=== PATIENT | male | born 1950 | race Two or more races ===

== ENCOUNTER 2020-07-22 12:41 | Emergency (ER) | payer MEDICARE, SELFPAY ==
--- NOTE | ~2020-07-22 | XR_ITS ---
EXAMINATION: XR TIBIA AND FIBULA, LEFT CLINICAL INFORMATION: Nonhealing wound. Status post trauma. COMPARISON: None TECHNIQUE: AP and lateral views of the left tibia and fibula were obtained. FINDINGS: The bones and soft tissues are normal. No fracture. No osseous lesions. XR/XR tibia fibula LT 2V IMPRESSION: Unremarkable left tibia and fibula exam.
--- NOTE | ~2020-07-22 | US_ITS ---
EXAMINATION: US VENOUS ULTRASOUND WITH DOPPLER LOWER EXTREMITY, LEFT CLINICAL INFORMATION: Left lower extremity pain, swelling, wound. Assess for occult DVT. COMPARISON: None TECHNIQUE: Ultrasound of the deep veins is performed from the hip to the calf with compression sonography and color and pulse Doppler assessment. Spectral analysis with color-flow imaging is performed. FINDINGS: There is normal venous compression and respiratory variation and augmented flow. The visualized common femoral vein, superficial femoral vein, profunda femoral vein, popliteal vein, and the trifurcation region shows no evidence of deep venous thrombosis. There is no popliteal fossa cyst. There are several nodes left inguinal region with normal central node fatty hilus. Largest node 0.8 cm short axis. No hyperemia on color Doppler. US/US venous duplex LE LT IMPRESSION: No DVT demonstrated in the left lower extremity.
[2020-07-22 13:08] VITALS: BP 151/73; PULSE 59; RESP 16; TEMP 36.9; O2SAT 100; BMI 25.5
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
--- NOTE | 2020-07-22 15:02 | PC.NURSE ---
CALL PLACED TO KATEY ANDINO LOADER ENGINEER TO REQUEST RESULTS, SHE WILL CONTACT RADIOLOGIST
== END 2020-07-22 15:29 | disposition home or self-care (01) ==
PROVIDERS: Emergency Provider Emergency Medicine; PCP Nurse Practitioner Family
DX: M79.662 Pain in left lower leg (principal); S81.802A Unspecified open wound, left lower leg, initial encounter; W22.03XA Walked into furniture, initial encounter; Y93.89 Activity, other specified; Y92.032 Bedroom in apartment as the place of occurrence of the external cause; Y99.9 Unspecified external cause status
CPT/HCPCS: 73590; 93971; 99283; 99284

== ENCOUNTER 2020-07-29 08:51 | Outpatient (RCR) | payer MEDICARE, SELFPAY | END 2020-09-24 11:38 | disposition home or self-care (01) | LOC: HO.WCC 08:51 | PROVIDERS: Visit Provider Physician Assistant | DX: I87.312 Chronic venous hypertension (idiopathic) with ulcer of left lower extremity (principal); L97.222 Non-pressure chronic ulcer of left calf with fat layer exposed | CPT/HCPCS: 11042 ==

== ENCOUNTER 2021-04-01 14:28 | Emergency (ER) | payer MEDICARE, SELFPAY ==
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
[2021-04-01 14:43] VITALS: BP 118/82; PULSE 65; O2SAT 99
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
[2021-04-01 14:54] VITALS: BP 131/69; PULSE 62; RESP 18; TEMP 36.9; O2SAT 98; BMI 25.1
[2021-04-01] MEDS: Acetaminophen 325 MG TABLET 650 MG PO (17:27)
[2021-04-01 17:30] VITALS: BP 148/78; PULSE 56; RESP 16
== END 2021-04-01 17:34 | disposition home or self-care (01) ==
PROVIDERS: Emergency Provider Emergency Medicine
DX: S13.4XXA Sprain of ligaments of cervical spine, initial encounter (principal); S20.212A Contusion of left front wall of thorax, initial encounter; V43.52XA Car driver injured in collision with other type car in traffic accident, initial encounter; Y93.89 Activity, other specified; Y92.414 Local residential or business street as the place of occurrence of the external cause; Y99.9 Unspecified external cause status
CPT/HCPCS: 71046; 72125; 99284

== ENCOUNTER 2022-05-28 11:10 | Emergency (ER) | payer OTHER, SELFPAY ==
--- NOTE | 2022-05-28 11:19 | ED.NAVMDI ---
HPI - Nausea/Vomiting/Diarrhea General Chief complaint: Nausea/Vomiting/Diarrhea <AURELIO Ellis - Last Filed: 05/28/22 11:24> Stated complaint: diarrhea <AURELIO Ellis - Last Filed: 05/28/22 11:24> Time Seen by Provider: 05/28/22 11:24 <AURELIO Ellis - Last Filed: 05/28/22 11:24> Source: patient and hourly sign language interpreter <AURELIO Mendoza - Last Filed: 05/28/22 13:27> Mode of arrival: ambulatory <AURELIO Mendoza Last Filed: 05/28/22 13:27> Limitations: language barrier <AURELIO Mendoza Last Filed: 05/28/22 13:27> History of Present Illness HPI Narrative: Patient is a 71 year old assigned male at with no reported medical history presenting to the emergency department today with diarrhea. Patient states that he has had diarrhea for 2 weeks and when it first started, he had abdominal pain. Patient states that he was seen in the [facility] ER where they told him he had diverticulitis but didn't start him on any medications or give him any information for follow up. Patient denies any dizziness, lightheadedness, abdominal pain, nausea, vomiting, fever, chills, blurry vision, double vision, loss of vision, chest pain, difficulty breathing, shortness of breath, back pain, night sweats, pain with urination, increased urinary frequency, increased urinary urgency, blood in his urine or stool, syncope or a near syncopal episode, recent trauma or falls, bowel incontinence, bladder incontinence, bowel retention, bladder retention, or any other complaints at this time. <AURELIO Mendoza - Last Filed: 05/28/22 13:27> MD elicited complaint: diarrhea <AURELIO Mendoza - Last Filed: 05/28/22 13:27> Onset (ago): week(s) (2) <AURELIO Mendoza - Last Filed: 05/28/22 13:27> Associated nausea: No <AURELIO Mendoza Last Filed: 05/28/22 13:27> Associated abdominal pain: No <AURELIO Mendoza - Last Filed: 03/10/23 13:27> Location of pain: none <AURELIO Mendoza Last Filed: 05/28/22 13:27> Exacerbating factors: none <AURELIO Mendoza Last Filed: 05/28/22 13:27> Relieving factors: none <AURELIO Mendoza Last Filed: 05/28/22 13:27> Associated symptoms: denies other symptoms <AURELIO Mendoza Last Filed: 05/28/22 13:27> Related Data Home medications: Previous Rx's Medication Instructions Recorded cephalexin 500 mg capsule 500 mg PO Q8H 7 days #21 caps 07/22/20 doxycycline monohydrate 100 mg 100 mg PO BID #14 caps 07/22/20 capsule tramadol 50 mg tablet 50 mg PO TID PRN pain #6 tabs 07/22/20 cyclobenzaprine 10 mg tablet 10 mg PO TID PRN muscle spasm #20 04/01/21 tabs amoxicillin 875 mg-potassium 1 tab PO BID 7 days #14 tabs 05/28/22 clavulanate 125 mg tablet loperamide 2 mg tablet (Imodium 2 mg PO QID PRN loose stool #7 tabs 05/28/22 A-D) <AURELIO Ellis - Last Filed: 05/28/22 11:24> Allergies/Adverse reactions: Allergies Allergy/AdvReac Type Severity Reaction Status Date / Time naproxen [From Anaprox] Allergy Rash Verified 07/22/20 13:08 <AURELIO Ellis Last Filed: 05/28/22 11:24> Review of Systems Constitutional: Constitutional: Reports no additional constitutional complaints, Denies chills, Denies fever(s) and Denies night sweats <AURELIO Mendoza Last Filed: 05/28/22 13:27> Eyes: Eyes: Reports no additional eye complaints, Denies blurry vision, Denies change in vision, Denies diplopia, Denies eye discharge, Denies loss of vision and Denies eye pain <AURELIO Mendoza Last Filed: 05/28/22 13:27> ENT: Denies dizziness <AURELIO Mendoza Last Filed: 05/28/22 13:27> Cardiovascular: Cardiovascular: Reports no additional cardiovascular complaints, Denies chest pain, Denies lightheadedness, Denies Loss of Consciousness and Denies dyspnea <AURELIO Mendoza - Last Filed: 05/28/22 13:27> Respiratory: Respiratory: Reports no additional respiratory complaints and Denies dyspnea <AURELIO Mendoza - Last Filed: 05/28/22 13:27> Gastrointestinal: Gastrointestinal: Reports diarrhea and Denies nausea <AURELIO Mendoza - Last Filed: 05/28/22 13:27> Genitourinary: Genitourinary: Reports no additional male genitourinary complaints, Denies hematuria, Denies oliguria, Denies difficulty urinating, Denies dysuria, Denies urinary frequency, Denies urinary hesitancy, Denies urinary incontinence and Denies urinary urgency <AURELIO Mendoza - Last Filed: 05/28/22 13:27> Musculoskeletal: Musculoskeletal: Reports no additional musculoskeletal complaints, Denies numbness and Denies tingling <AURELIO Mendoza - Last Filed: 05/28/22 13:27> Neurologic: Denies dizziness, Denies loss of vision, Denies numbness and Denies tingling <AURELIO Mendoza - Last Filed: 05/28/22 13:27> Psychiatric: Psychiatric: Reports no additional psychiatric complaints <AURELIO Mendoza - Last Filed: 05/28/22 13:27> Endocrine: Endocrine: Reports no additional endocrine complaints <AURELIO Mendoza - Last Filed: 05/28/22 13:27> Hematologic/Lymphatic: Hematologic/Lymphatic: Reports no additional hematologic/lymphatic complaints <AURELIO Mendoza - Last Filed: 05/28/22 13:27> Allergic/Immunologic: Allergic/Immunologic: Reports no additional allergic/immunologic complaints <AURELIO Mendoza - Last Filed: 05/28/22 13:27> PMFSH Past Medical History Attestation statement: The following information was validated with the patient. <AURELIO Mendoza - Last Filed: 05/28/22 13:27> Source: old records reviewed and nursing notes reviewed <AURELIO Mendoza - Last Filed: 05/28/22 13:27> Medical History: Medical History No known health problems <Luz Renschler, PA - Last Filed: 05/28/22 11:24> Social History Social History: Social History Advance Directives: Yes Advance Directives Information Provided: No Advance Directives on File: No <AURELIO Ellis - Last Filed: 05/28/22 11:24> Physical Exam Vital Signs: Vital Signs: Last Vital Signs Temp 97.9 F 05/28/22 11:20 Pulse 60 05/28/22 11:20 Resp 18 05/28/22 11:20 BP 132/87 05/28/22 11:20 Pulse Ox 98 05/28/22 11:20 O2 Del Method 05/28/22 11:20 BMI result Body Mass Index 25.1 <AURELIO Ellis - Last Filed: 05/28/22 11:24> Vital Signs: Last Vital Signs Temp 97.9 F 05/28/22 11:20 Pulse 60 05/28/22 11:20 Resp 18 05/28/22 11:20 BP 132/87 05/28/22 11:20 Pulse Ox 98 05/28/22 11:20 O2 Del Method 05/28/22 11:20 BMI result Body Mass Index 25.1 <AURELIO Mendoza - Last Filed: 05/28/22 13:27> Const: General: cooperative, no acute distress, alert and awake <AURELIO Mendoza - Last Filed: 05/28/22 13:27> Nutritional Appearance: well nourished <AURELIO Mendoza - Last Filed: 05/28/22 13:27> Orientation/consciousness: patient oriented x3 <AURELIO Mendoza - Last Filed: 05/28/22 13:27> Limitations: no limitations <AURELIO Mendoza - Last Filed: 05/28/22 13:27> HEENT: Head: Yes normal to inspection and Yes atraumatic <AURELIO Mendoza - Last Filed: 05/28/22 13:27> Ears: hearing grossly normal bilaterally and external ears normal <AURELIO Mendoza - Last Filed: 05/28/22 13:27> General nose exam: Normal external nose present, no nasal discharge noted and no epistaxis <Blanka AntonioAURELIO - Last Filed: 05/28/22 13:27> Face and sinus: Yes normal facial exam, No abrasion and No laceration <Blanka Antonio MT - Last Filed: 05/28/22 13:27> Mouth: Normal oral and palatal mucosa present, no drooling and no muffled voice <Blanka Antonio MT - Last Filed: 05/28/22 13:27> Eyes: General: appearance normal, both eyes and all related structures <Blanka Antonio MT - Last Filed: 05/28/22 13:27> Periorbital: periorbital findings normal <Blanka Antonio MT - Last Filed: 05/28/22 13:27> Eyelids: Yes eyelids normal <Blanka Antonio MT - Last Filed: 05/28/22 13:27> Conjunctivae: conjunctivae normal <Blanka Antonio MT - Last Filed: 05/28/22 13:27> Pupils: Equal, round and reactive pupils present <Blanka Antonio MT - Last Filed: 05/28/22 13:27> EOM: EOMs intact bilaterally <Blanka Antonio MT - Last Filed: 05/28/22 13:27> Neck: Neck: Yes normal visual inspection, Yes full ROM and Yes no lymphadenopathy <Blanka Antonio MT - Last Filed: 05/28/22 13:27> Chest: Chest palpation & inspection: normal inspection of the chest <Blanka Antonio MT - Last Filed: 05/28/22 13:27> Resp: Effort & Inspection: normal respiratory effort and able to speak in complete sentences <Blanka Antonio MT - Last Filed: 05/28/22 13:27> Auscultation: clear to auscultation bilaterally <Blanka ChampionAURELIO lima - Last Filed: 05/28/22 13:27> Cardio: Rate: regular rate <Blanka AntonioAURELIO - Last Filed: 05/28/22 13:27> Rhythm: regular rhythm <Blanka AntonioAURELIO - Last Filed: 05/28/22 13:27> GI: Inspection: Yes normal to inspection <Blanka Championclarence MT - Last Filed: 05/28/22 13:27> Palpation (GI): Soft to palpation, not firm, nontender, no guarding and not rigid <Blanka ChampionAURELIO lima - Last Filed: 05/28/22 13:27> Neuro: General: patient oriented x3 and moves all extremities <Blanka AntonioAURELIO - Last Filed: 05/28/22 13:27> Cranial nerves: Yes Equal, round and reactive pupils present <Blakna ChampionAURELIO lima - Last Filed: 05/28/22 13:27> Cognition (Neuro): normal cognition <Blanka AntonioAURELIO - Last Filed: 05/28/22 13:27> Motor exam (neuro): 5/5 motor strength present throughout <Blanka ChampionAURELIO lima - Last Filed: 05/28/22 13:27> Sensory Exam: Normal double simultaneous stimulation for sensation <Blanka AntonioAURELIO - Last Filed: 05/28/22 13:27> Coordination: exizob-cv-uwcp test normal <Blankaarley ChampionAURELIO lima - Last Filed: 05/28/22 13:27> Extrem: General: Yes normal to inspection, Yes full ROM and Yes capillary refill normal <Blanka ChampionAURELIO lima - Last Filed: 05/28/22 13:27> Psych: Appearance: grossly normal <Blankaarley ChampionAURELIO lima - Last Filed: 05/28/22 13:27> Mental Status: mental status grossly normal <Blanka ChampionAURELIO lima - Last Filed: 05/28/22 13:27> Affect: normal affect <Blankaarley ChampionAURELIO lima - Last Filed: 05/28/22 13:27> Attitude: cooperative <Blanka AntonioAURELIO lima - Last Filed: 05/28/22 13:27> Thought process: Normal thought process present <Blankaarley ChampionAURELIO lima - Last Filed: 05/28/22 13:27> Thought content: Normal thought content present <AURELIO Mendoza - Last Filed: 05/28/22 13:27> Insight: Good insight present (Psych) <Blankaarley ChampionAURELIO lima - Last Filed: 05/28/22 13:27> Course Course Course Narrative: RME - 71 yo hungarian-speaking male presenting to the ER with complaints of diarrhea x 2 weeks. Denies any nausea, vomiting or abdominal pain. States he is having 4 episodes of diarrhea a day. Denies any bloody stool. Was seen at [facility] ER last week, had blood work and a CT scan, however patient is a poor historian and is unable to report what he was diagnosed with or any findings. VSS in triage Plan - Labs ordered. Will get records from [facility]. <AURELIO Ellis - Last Filed: 05/28/22 11:24> Medical Decision Making Medical Decision Making MDM Narrative: Patient is a 71 year old assigned male at with no reported medical history presenting to the emergency department today with ongoing diarrhea. Patient's physical exam was unremarkable. Patient's blood work was unremarkable. Patient's urine showed no acute process. Patient's clinical presentation is consistent with gastroenteritis. Given the length of the patient's symptoms and possibility of diverticulitis diagnosis from [facility] ER, will treat with antibiotics and antidiarrheals. I explained my physical exam findings as well as all test results to the patient. I answered all questions asked by the patient. I stressed the importance of the patient taking his medication as prescribed. I stressed the importance of the patient following up with his primary care provider and a GI specialist. I stressed the importance of the patient returning to the emergency department immediately if his symptoms were to worsen or if he were to develop any dizziness, shortness of breath, difficulty breathing, chest pain, blurry vision, loss of vision, nausea, vomiting, abdominal pain, fever, chills, back pain, or any other complaints. Patient verbalized agreement and understanding with this treatment plan and discharge. <AURELIO Mendoza - Last Filed: 05/28/22 13:27> Differential Diagnosis Differential Diagnoses: The differential diagnosis associated with the presentation includes <AURELIO Mendoza - Last Filed: 05/28/22 13:27> gastroenteritis, diverticulitis <AURELIO Mendoza - Last Filed: 05/28/22 13:27> Lab Data MDM Lab Attestation statement: I reviewed the patient's lab results. <AURELIO Mendoza - Last Filed: 05/28/22 13:27> Result Diagrams: 05/28/22 11:33 05/28/22 11:33 <AURELIO Ellis - Last Filed: 05/28/22 11:24> Labs: Lab Results 05/28/22 05/28/22 05/28/22 Range/Units 11:33 11:33 11:38 WBC 5.9 (4.8-10.8) X10*3/uL RBC 4.23 L (4.60-5.80) X10*6/uL Hgb 13.0 L (14.0-18.0) g/dl Hct 39.3 L (42.0-52.0) % MCV 92.9 (80.0-98.0) fL MCH 30.7 (27.0-33.0) pg MCHC 33.1 (31.0-36.0) g/dl RDW 14.7 (11.0-16.0) % Plt Count 121 L (160-400) X10*3/uL MPV 12.2 (9.4-12.4) fL Immature Gran % (Auto) 0.2 (0.0-0.4) % Neut % (Auto) 62.6 (45-73) % Lymph % (Auto) 28.0 (20-40) % [place] % (Auto) 7.5 (2-11) % Eos % (Auto) 1.2 (0-4) % Baso % (Auto) 0.5 (0-2) % Lymph # (Auto) 1.6 (1.2-4.9) X10*3/uL [place] # (Auto) 0.4 (0.1-1.2) X10*3/uL Eos # (Auto) 0.1 (0.0-0.4) X10*3/uL Baso # (Auto) 0.0 (0.0-0.2) X10*3/uL Abs Immat Gran (auto) 0.01 (0.00-0.03) X10*3/uL Absolute Neuts (auto) 3.7 (2.0-8.3) x10*3/uL Absolute Nucleated RBC 0.000 (0.0-0.012) X10*3/uL Nucleated RBC % (auto) 0.0 (0.0-0.2) /100WBC Sodium 142 (135-145) mmol/L Potassium 4.2 (3.3-5.1) mmol/L Chloride 107 (96-108) mmol/L Carbon Dioxide 30 H (22-29) mmol/L Anion Gap 9 L (12-20) BUN 15 (9-16) mg/dL Creatinine 0.81 (0.5-1.4) mg/dL Estim Creat Clear Calc 86.0 Estimated GFR > 60 Random Glucose 110 (60-115) mg/dL Calcium 9.0 (8.4-10.2) mg/dL Magnesium 1.9 (1.6-2.6) mg/dL Total Bilirubin 0.9 (0.0-1.0) mg/dL Direct Bilirubin 0.2 (0.0-0.5) mg/dL AST 20 (5-37) U/L ALT 13 (0-40) U/L Alkaline Phosphatase 68 (39-117) U/L Total Protein 6.9 (6.5-8.0) g/dL Albumin 3.8 (3.5-5.0) g/dL Urine Color Dark Yellow Urine Appearance Cloudy Urine pH 5.5 (5.0-9.0) Ur Specific [place] >= 1.030 H (1.005-1.025) Urine Protein 30 (1+) H (Neg-Trace) mg/dL Urine Glucose (UA) Negative (Negative) mg/dL Urine Ketones Trace (Negative) mg/dL Urine Blood Negative (Negative) Urine Nitrite Negative (Negative) Ur Leukocyte Esterase Moderate (2+) H (Negative) Urine RBC 0-2 (0-2) /HPF Urine WBC >50 H (0-5) /HPF Ur Squamous Epith Cells 3-5 (0-2) /HPF Urine Bacteria None Seen (None Seen) Hyaline Casts 3-5 (0-2) /LPF <AURELIO Ellis - Last Filed: 05/28/22 11:24> Lab Results 05/28/22 05/28/22 05/28/22 Range/Units 11:33 11:33 11:38 WBC 5.9 (4.8-10.8) X10*3/uL RBC 4.23 L (4.60-5.80) X10*6/uL Hgb 13.0 L (14.0-18.0) g/dl Hct 39.3 L (42.0-52.0) % MCV 92.9 (80.0-98.0) fL MCH 30.7 (27.0-33.0) pg MCHC 33.1 (31.0-36.0) g/dl RDW 14.7 (11.0-16.0) % Plt Count 121 L (160-400) X10*3/uL MPV 12.2 (9.4-12.4) fL Immature Gran % (Auto) 0.2 (0.0-0.4) % Neut % (Auto) 62.6 (45-73) % Lymph % (Auto) 28.0 (20-40) % [place] % (Auto) 7.5 (2-11) % Eos % (Auto) 1.2 (0-4) % Baso % (Auto) 0.5 (0-2) % Lymph # (Auto) 1.6 (1.2-4.9) X10*3/uL [place] # (Auto) 0.4 (0.1-1.2) X10*3/uL Eos # (Auto) 0.1 (0.0-0.4) X10*3/uL Baso # (Auto) 0.0 (0.0-0.2) X10*3/uL Abs Immat Gran (auto) 0.01 (0.00-0.03) X10*3/uL Absolute Neuts (auto) 3.7 (2.0-8.3) x10*3/uL Absolute Nucleated RBC 0.000 (0.0-0.012) X10*3/uL Nucleated RBC % (auto) 0.0 (0.0-0.2) /100WBC Sodium 142 (135-145) mmol/L Potassium 4.2 (3.3-5.1) mmol/L Chloride 107 (96-108) mmol/L Carbon Dioxide 30 H (22-29) mmol/L Anion Gap 9 L (12-20) BUN 15 (9-16) mg/dL Creatinine 0.81 (0.5-1.4) mg/dL Estim Creat Clear Calc 86.0 Estimated GFR > 60 Random Glucose 110 (60-115) mg/dL Calcium 9.0 (8.4-10.2) mg/dL Magnesium 1.9 (1.6-2.6) mg/dL Total Bilirubin 0.9 (0.0-1.0) mg/dL Direct Bilirubin 0.2 (0.0-0.5) mg/dL AST 20 (5-37) U/L ALT 13 (0-40) U/L Alkaline Phosphatase 68 (39-117) U/L Total Protein 6.9 (6.5-8.0) g/dL Albumin 3.8 (3.5-5.0) g/dL Urine Color Dark Yellow Urine Appearance Cloudy Urine pH 5.5 (5.0-9.0) Ur Specific [place] >= 1.030 H (1.005-1.025) Urine Protein 30 (1+) H (Neg-Trace) mg/dL Urine Glucose (UA) Negative (Negative) mg/dL Urine Ketones Trace (Negative) mg/dL Urine Blood Negative (Negative) Urine Nitrite Negative (Negative) Ur Leukocyte Esterase Moderate (2+) H (Negative) Urine RBC 0-2 (0-2) /HPF Urine WBC >50 H (0-5) /HPF Ur Squamous Epith Cells 3-5 (0-2) /HPF Urine Bacteria None Seen (None Seen) Hyaline Casts 3-5 (0-2) /LPF <AURELIO Mendoza - Last Filed: 05/28/22 13:27> Discharge Plan Discharge Clinical Impression: Gastroenteritis <AURELIO Ellis - Last Filed: 05/28/22 11:24> Patient Disposition: Home, Self-Care <AURELIO Ellis - Last Filed: 05/28/22 11:24> Instructions: Gastroenteritis (ED) <AURELIO Ellis - Last Filed: 05/28/22 11:24> Additional Instructions: Follow up with your primary care provider and a GI specialist. Return to the emergency department immediately if your symptoms worsen or if you develop any dizziness, shortness of breath, difficulty breathing, chest pain, blurry vision, loss of vision, nausea, vomiting, abdominal pain, fever, chills, back pain, or any other complaints. Lele un seguimiento con napoles proveedor de atenci?n primaria y un especialista en gastroenterolog?a. Regrese a la bridget de emergencias de inmediato si danielle s?ntomas empeoran o si presenta mareos, dificultad para respirar, dolor de pecho, visi?n borroskate p?rdida de la visi?n, n?useas, v?mitos, dolor abdominal, fiebre, escalofr?os, dolor de espalda o cualquier otras quejas. <AURELIO Ellis - Last Filed: 05/28/22 11:24> Prescriptions: New amoxicillin-pot clavulanate 875-125 mg tablet 1 tab PO BID 7 Days Qty: 14 0RF loperamide [Imodium A-D] 2 mg tablet 2 mg PO QID PRN (Reason: loose stool) Qty: 7 0RF No Action cephalexin 500 mg capsule 500 mg PO Q8H 7 Days Qty: 21 0RF doxycycline monohydrate 100 mg capsule 100 mg PO BID Qty: 14 0RF tramadol 50 mg tablet 50 mg PO TID PRN (Reason: pain) Qty: 6 0RF cyclobenzaprine 10 mg tablet 10 mg PO TID PRN (Reason: muscle spasm) Qty: 20 0RF <AURELIO Ellis - Last Filed: 05/28/22 11:24> Referrals: [facility] [place] Gastroenterology Services [Provider Group] (Call to establish and follow up with a GI specialist. Llame para establecer y hacer un seguimiento con un especialista en gastroenterolog?a.) [facility] [place] [facility] [place]] (Call to establish and follow up with a primary care provider. If you already have a primary care provider, please follow up with them. Llame para establecer y hacer un seguimiento con un proveedor de atenci?n primaria. Si ya tiene un proveedor de atenci?n primaria, lele un seguimiento con ?l.) [facility]Provider Group] (Call to establish and follow up with a primary care provider. If you already have a primary care provider, please follow up with them. Llame para establecer y hacer un seguimiento con un proveedor de atenci?n primaria. Si ya tiene un proveedor de atenci?n primaria, lele un seguimiento con ?l. ) [facility] [place]Provider Group] (Call to establish and follow up with a primary care provider. If you already have a primary care provider, please follow up with them. Llame para establecer y hacer un seguimiento con un proveedor de atenci?n primaria. Si ya tiene un proveedor de atenci?n primaria, lele un seguimiento con ?l. ) <AURELIO Ellis - Last Filed: 05/28/22 11:24> Interventions: ED Discharge Assessment Last Done: 05/28/22 12:41 <AURELIO Ellis - Last Filed: 05/28/22 11:24> Discharge Date/Time: 05/28/22 12:42 <AURELIO Ellis - Last Filed: 05/28/22 11:24> Print Language: Canadian <AURELIO Ellis - Last Filed: 05/28/22 11:24>
[2022-05-28 11:20] VITALS: BP 132/87; PULSE 60; RESP 18; TEMP 36.6; O2SAT 98; BMI 25.1
[2022-05-28 11:39] LABS: MANUAL DIFF FLAG NO
[2022-05-28 12:05] LABS: Appearance Urine Cloudy; Color Urine Dark Yellow; Glucose Urine UA Negative (Negative); Leukocyte Esterase Urine Moderate (2+) (Negative); Nitrite Urine Negative (Negative); PH 5.5 (5.0-9.0); Specific Gravity - Urine >= 1.030 (1.005-1.025); UMIC TRIGGER UACC YES; Urine Blood Negative (Negative); Urine Ketones Trace mg/dL (Negative); Urine Protein 30 (1+) mg/dL (Neg-Trace)
[2022-05-28 12:06] LABS: Bacteria Urine None Seen (None Seen); RBC Urine 0-2 /HPF (0-2); UACC Culture Trigger YES; WBC Urine >50 /HPF (0-5)
[2022-05-28 12:12] LABS: Alanine Aminotransferase 13 U/L (0-40); Albumin Level 3.8 g/dL (3.5-5.0); Alkaline Phosphatase 68 U/L (39-117); Anion Gap 9 (12-20); Aspartate Amino Transferase 20 U/L (5-37); Bilirubin Direct 0.2 mg/dL (0.0-0.5); Bilirubin Total 0.9 mg/dL (0.0-1.0); Blood Urea Nitrogen 15 mg/dL (9-16); Carbon Dioxide 30 mmol/L (22-29); Chloride 107 mmol/L (96-108); Estimated Glomerular Filt Rate > 60; Glucose Random 110 mg/dL (60-115); Magnesium 1.9 mg/dL (1.6-2.6); Potassium 4.2 mmol/L (3.3-5.1); Sodium 142 mmol/L (135-145); Total Protein 6.9 g/dL (6.5-8.0)
[2022-05-28 12:24] LABS: Basophils Percent Auto 0.5 % (0-2); Eosinophils Absolute Auto 0.1 X10*3/uL (0.0-0.4); Eosinophils Percent Auto 1.2 % (0-4); Hematocrit 39.3 % (42.0-52.0); Imm Gran Abs Auto 0.01 X10*3/uL (0.00-0.03); Imm Gran Pct Auto 0.2 % (0.0-0.4); Lymphocytes Absolute Auto 1.6 X10*3/uL (1.2-4.9); Mean Corpuscular HGB Conc 33.1 g/dl (31.0-36.0); Mean Corpuscular Hemoglobin 30.7 pg (27.0-33.0); Mean Corpuscular Volume 92.9 fL (80.0-98.0); Mean Platelet Volume 12.2 fL (9.4-12.4); Monocytes Absolute Auto 0.4 X10*3/uL (0.1-1.2); Monocytes Percent Auto 7.5 % (2-11); Neutrophils Absolute Auto 3.7 x10*3/uL (2.0-8.3); Neutrophils Percent Auto 62.6 % (45-73); Platelet Count 121 X10*3/uL (160-400); Red Blood Count 4.23 X10*6/uL (4.60-5.80); Red Cell Distribution Width 14.7 % (11.0-16.0); White Blood Count 5.9 X10*3/uL (4.8-10.8)
== END 2022-05-28 12:42 | disposition home or self-care (01) ==
PROVIDERS: Physician Assistant; Emergency Provider Emergency Medicine
DX: K52.9 Noninfective gastroenteritis and colitis, unspecified (principal); R10.9 Unspecified abdominal pain
CPT/HCPCS: 36415; 80048; 80076; 81001; 81003; 83735; 85025; 87086; 87088; 87186; 99282; 99283

== ENCOUNTER 2023-01-19 11:13 | Outpatient (REF) | payer OTHER, SELFPAY ==
[2023-01-19 13:37] LABS: Ferritin 631 ng/mL (20-250)
== END 2023-01-19 11:14 | disposition home or self-care (01) ==
LOC: HO.BBR 11:13
PROVIDERS: Visit Provider Internal Medicine Hematology & Oncology
DX: E83.110 Hereditary hemochromatosis (principal)
CPT/HCPCS: 36415; 82728

== ENCOUNTER 2023-02-02 14:09 | Outpatient (REF) | payer OTHER, SELFPAY ==
[2023-02-02 15:56] LABS: Ferritin 615 ng/mL (20-250)
== END 2023-02-02 14:10 | disposition home or self-care (01) ==
LOC: HO.BBR 14:09
PROVIDERS: Visit Provider Internal Medicine Hematology & Oncology
DX: E83.110 Hereditary hemochromatosis (principal)
CPT/HCPCS: 36415; 82728

== ENCOUNTER 2023-02-16 13:40 | Outpatient (REF) | payer OTHER, SELFPAY ==
[2023-02-16 16:10] LABS: Ferritin 662 ng/mL (20-250)
== END 2023-02-16 13:41 | disposition home or self-care (01) ==
LOC: HO.BBR 13:40
PROVIDERS: Visit Provider Internal Medicine Hematology & Oncology
DX: E83.110 Hereditary hemochromatosis (principal)
CPT/HCPCS: 36415; 82728

== ENCOUNTER 2023-02-25 23:27 | Emergency (ER) | payer OTHER, SELFPAY ==
[2023-02-25 23:37] VITALS: BP 137/59; PULSE 57; RESP 16; TEMP 36.1; O2SAT 98; BMI 23.6
--- NOTE | 2023-02-26 00:43 | ED.SKABFB ---
HPI - Skin/Abscess/Foreign Bdy General Chief complaint: Skin/Abscess/Foreign Body Stated complaint: Rash Time Seen by Provider: 02/26/23 00:31 Source: patient Mode of arrival: ambulatory Limitations: no limitations History of Present Illness HPI narrative: 72 yo male with no sig PMH here with c/o 1 week pruritic rash on R forearm after he thinks using gym equipment it is very red and itchy. He notes it is only on the right forearm. MD complaint: rash Onset (ago): week(s) (1) Tetanus up to date: yes Location: RUE Severity: moderate Quality: burning and pruritic Relieving factors: none Exacerbating factors: none Context: other (after using gym equipment) Associated symptoms: denies other symptoms Treatments prior to arrival: bandages Related Data Previous Rx's Medication Instructions Recorded cephalexin 500 mg capsule 500 mg PO Q8H 7 days #21 caps 07/22/20 doxycycline monohydrate 100 mg 100 mg PO BID #14 caps 07/22/20 capsule tramadol 50 mg tablet 50 mg PO TID PRN pain #6 tabs 07/22/20 cyclobenzaprine 10 mg tablet 10 mg PO TID PRN muscle spasm #20 04/01/21 tabs amoxicillin 875 mg-potassium 1 tab PO BID 7 days #14 tabs 05/28/22 clavulanate 125 mg tablet loperamide 2 mg tablet (Imodium 2 mg PO QID PRN loose stool #7 tabs 05/28/22 A-D) mupirocin 2 % topical ointment 1 appl topical BID 7 days #15 grams 02/26/23 prednisone 20 mg tablet 40 mg (2 x 20 mg) PO DAILY 4 days 02/26/23 #8 tabs Allergies Allergy/AdvReac Type Severity Reaction Status Date / Time naproxen [From Anaprox] Allergy Rash Verified 02/25/23 23:42 Review of Systems Review of Systems: Constitutional : No Fever, No Chills ENT/Mouth : No sore throat, No Rhinorrhea Eyes: No Eye Pain, No Swelling, No Redness Cardiovascular : No Chest Pain, No SOB Respiratory : No Cough, No Sputum Gastrointestinal : No Nausea, No Vomiting, No Diarrhea, No abdominal Pain Genitourinary : No Dysuria, No Hematuria Musculoskeletal : No joint pain, No Myalgias, No Joint Swelling Skin : pos Skin Lesions, positive skin rash Neuro : No Weakness, No Numbness, No Headache Psych : No Anxiety, No Depression All other systems reviewed and are negative COUNTS INCLUDE 234 BEDS AT THE [facility] Past Medical History Source: old records reviewed Medical History No known health problems Social History Social History (Updated 02/26/23 @ 01:07 by Siena Santiago DO) Patient Tobacco Use Status: Never used Tobacco Physical Exam Vital Signs: Vital Signs: Last Vital Signs Temp 97 F 02/25/23 23:37 Pulse 57 02/25/23 23:37 Resp 16 02/25/23 23:37 BP 137/59 L 02/25/23 23:37 Pulse Ox 98 02/25/23 23:37 O2 Del Method Room Air 02/25/23 23:37 BMI result Body Mass Index 23.6 Appearance: Alert. Oriented X3. No acute distress. Eyes: Pupils equal, round and reactive to light. ENT: Pharynx normal. Neck: Normal inspection. Neck supple. CVS: Pulses normal. Respiratory: No respiratory distress. Abdomen: Soft and nontender. Skin: Skin warm and dry. Normal skin color. Extremities: No lower extremity edema. R forearm posterior aspect wrist to elbow there is red raised vesicular like areas with excoriations and crusting but no warmth, edema, drainage or signs of infection Neuro: Oriented X 3. No motor deficit. No sensory deficit. Medical Decision Making Medical Decision Making MDM Narrative: 72 yo male with rash on R forearm after using gym equipment area appears to be a dermatitis there are no signs of cellulitis at this time will need PO steroids, topical mupirocin there are no other signs of rash or allergy anywhere else. Not toxic. Differential Diagnosis Differential Diagnoses: The differential diagnosis associated with the presentation includes contact dermatitis, allergic rxn Independent Historian Clinical information obtained from an independent historian. History obtained from or confirmed by: Spouse External Record Review External record reviewed: Office record Prescription Management I considered prescription management with: Other Discharge Plan Discharge Clinical Impression: Contact dermatitis Qualifiers: Contact dermatitis type: irritant Contact dermatitis trigger: unspecified trigger Qualified Code(s): L24.9 - Irritant contact dermatitis, unspecified cause Patient Disposition: Home, Self-Care Instructions: Contact Dermatitis (ED) Additional Instructions: take medications with food. return for worsening pain, swelling, fevers, increased redness, yellow drainage or signs of infection Prescriptions: New prednisone 20 mg tablet 40 mg PO DAILY 4 Days Qty: 8 0RF mupirocin 2 % ointment 1 appl topical BID 7 Days Qty: 15 0RF No Action cephalexin 500 mg capsule 500 mg PO Q8H 7 Days Qty: 21 0RF doxycycline monohydrate 100 mg capsule 100 mg PO BID Qty: 14 0RF tramadol 50 mg tablet 50 mg PO TID PRN (Reason: pain) Qty: 6 0RF cyclobenzaprine 10 mg tablet 10 mg PO TID PRN (Reason: muscle spasm) Qty: 20 0RF amoxicillin-pot clavulanate 875-125 mg tablet 1 tab PO BID 7 Days Qty: 14 0RF loperamide [Imodium A-D] 2 mg tablet 2 mg PO QID PRN (Reason: loose stool) Qty: 7 0RF
[2023-02-26] MEDS: predniSONE 20 MG TABLET 40 MG PO (01:13)
== END 2023-02-26 01:28 | disposition home or self-care (01) ==
PROVIDERS: Emergency Provider Emergency Medicine; PCP Nurse Practitioner Family
DX: L24.9 Irritant contact dermatitis, unspecified cause (principal); L29.9 Pruritus, unspecified
CPT/HCPCS: 99283

== ENCOUNTER 2023-03-03 14:07 | Outpatient (REF) | payer OTHER, SELFPAY ==
[2023-03-03 15:40] LABS: Ferritin 588 ng/mL (20-250)
== END 2023-03-03 14:08 | disposition home or self-care (01) ==
LOC: HO.BBR 14:07
PROVIDERS: Visit Provider Internal Medicine Hematology & Oncology
DX: E83.110 Hereditary hemochromatosis (principal)
CPT/HCPCS: 36415; 82728

== ENCOUNTER 2023-03-25 12:22 | Outpatient (REF) | payer OTHER, SELFPAY | END 2023-03-25 12:23 | disposition home or self-care (01) | LOC: HO.BBR 12:22 | PROVIDERS: PCP Nurse Practitioner Family; Visit Provider Internal Medicine Hematology & Oncology | DX: E83.110 Hereditary hemochromatosis (principal) | CPT/HCPCS: 36415; 82728 ==

== ENCOUNTER 2023-04-07 12:05 | Outpatient (REF) | payer OTHER, SELFPAY ==
[2023-04-07 14:23] LABS: Ferritin 621 ng/mL (20-250)
== END 2023-04-07 12:06 | disposition home or self-care (01) ==
LOC: HO.BBR 12:05
PROVIDERS: PCP Nurse Practitioner Family; Visit Provider Internal Medicine Hematology & Oncology
DX: E83.110 Hereditary hemochromatosis (principal)
CPT/HCPCS: 36415; 82728

== ENCOUNTER 2023-04-15 00:13 | Emergency (ER) | payer OTHER, SELFPAY ==
[2023-04-15 00:28] VITALS: BP 124/63; PULSE 52; RESP 16; TEMP 36.7; O2SAT 98; BMI 23.6
[2023-04-15 03:14] VITALS: BP 162/70; PULSE 49; RESP 12; TEMP 36.7; O2SAT 99
[2023-04-15 03:49] LABS: MANUAL DIFF FLAG NO
[2023-04-15 03:52] LABS: Basophils Percent Auto 0.8 % (0-2); Eosinophils Absolute Auto 0.1 X10*3/uL (0.0-0.4); Eosinophils Percent Auto 2.5 % (0-4); Hematocrit 34.7 % (42.0-52.0); Hemoglobin 11.2 g/dl (14.0-18.0); Lymphocytes Percent Auto 41.8 % (20-40); Mean Corpuscular HGB Conc 32.3 g/dl (31.0-36.0); Mean Corpuscular Hemoglobin 31.3 pg (27.0-33.0); Mean Corpuscular Volume 96.9 fL (80.0-98.0); Mean Platelet Volume 11.1 fL (9.4-12.4); Monocytes Absolute Auto 0.4 X10*3/uL (0.1-1.2); Monocytes Percent Auto 8.4 % (2-11); Neutrophils Absolute Auto 2.3 x10*3/uL (2.0-8.3); Neutrophils Percent Auto 46.5 % (45-73); Platelet Count 157 X10*3/uL (160-400); Red Blood Count 3.58 X10*6/uL (4.60-5.80); Red Cell Distribution Width 14.1 % (11.0-16.0); White Blood Count 4.9 X10*3/uL (4.8-10.8)
[2023-04-15 04:07] LABS: Alanine Aminotransferase 12 U/L (0-40); Albumin Level 3.8 g/dL (3.5-5.0); Alkaline Phosphatase 69 U/L (39-117); Anion Gap 14 (12-20); Aspartate Amino Transferase 17 U/L (5-37); Bilirubin Total 0.2 mg/dL (0.0-1.0); Blood Urea Nitrogen 14 mg/dL (9-16); Calcium 9.3 mg/dL (8.4-10.2); Carbon Dioxide 26 mmol/L (22-29); Chloride 111 mmol/L (96-108); Creatinine Clr Calc Pharmacy 81.8; Estimated Glomerular Filt Rate > 60; Glucose Random 108 mg/dL (60-115); Sodium 147 mmol/L (135-145); Total Protein 7.3 g/dL (6.5-8.0)
--- NOTE | 2023-04-15 04:32 | ED_ITS ---
HPI - Skin/Abscess/Foreign Bdy General Chief complaint: Skin/Abscess/Foreign Body Stated complaint: ulcer on foot ? Time Seen by Provider: 04/15/23 04:25 Source: patient Mode of arrival: ambulatory Limitations: no limitations History of Present Illness HPI narrative: Patient with peripheral artery disease smoker comes here for 2 weeks of ulceration on the left leg on the lateral aspect which getting deeper no significant pus discharge no fever no chills patient had a similar lesion year ago at the same location Related Data Previous Rx's Medication Instructions Recorded cephalexin 500 mg capsule 500 mg PO Q8H 7 days #21 caps 07/22/20 doxycycline monohydrate 100 mg 100 mg PO BID #14 caps 07/22/20 capsule tramadol 50 mg tablet 50 mg PO TID PRN pain #6 tabs 07/22/20 cyclobenzaprine 10 mg tablet 10 mg PO TID PRN muscle spasm #20 04/01/21 tabs amoxicillin 875 mg-potassium 1 tab PO BID 7 days #14 tabs 05/28/22 clavulanate 125 mg tablet loperamide 2 mg tablet (Imodium 2 mg PO QID PRN loose stool #7 tabs 05/28/22 A-D) mupirocin 2 % topical ointment 1 appl topical BID 7 days #15 grams 02/26/23 prednisone 20 mg tablet 40 mg (2 x 20 mg) PO DAILY 4 days 02/26/23 #8 tabs cephalexin 500 mg capsule 500 mg PO QID 10 days #40 caps 04/15/23 doxycycline hyclate 100 mg tablet 100 mg PO BID #20 tabs 04/15/23 mupirocin 2 % topical ointment 1 appl topical BID #22 grams 04/15/23 Allergies Allergy/AdvReac Type Severity Reaction Status Date / Time naproxen [From Anaprox] Allergy Rash Verified 02/25/23 23:42 Review of Systems 2 Review of Systems: Yes all other systems are reviewed and are negative PMFSH Past Medical History Medical History No known health problems Social History Social History Patient Tobacco Use Status: Never used Tobacco Smoked in Last 30 Days: No Use of substances other than those prescribed or required for medical reasons: No Advance Directives: No Advance Directives Information Provided: Yes Physical Exam 2 Vital Signs: Vital Signs: Last Vital Signs Temp 98.0 F 04/15/23 04:49 Pulse 50 04/15/23 04:49 Resp 12 04/15/23 04:49 BP 163/78 H 04/15/23 04:49 Pulse Ox 98 04/15/23 04:49 O2 Del Method Room Air 04/15/23 04:49 BMI result Body Mass Index 23.6 Appearance: Alert. Oriented X3. No acute distress. Eyes: PERRLA, No Nystagmus ENT: Pharynx normal. Oral Mucosa moist Neck: Normal inspection. Neck supple. CVS: Normal heart rate and rhythm. Pulses normal. Respiratory: No respiratory distress. Equal air entry bilateral, no wheezing/rales/rhonchi Abdomen: Soft and nontender. Skin: Skin warm and dry. Normal skin color. Normal skin turgor. Extremities: No lower extremity edema. No calf tenderness changes of chronic venous deficiency++ Neuro: Oriented X 3. No motor deficit. No sensory deficit.No cerebellar signs , cranial nerves II-XII intact Medications Administered Discontinued Medications Generic Name Dose Route Start Last Admin Trade Name Freq PRN Reason Stop Dose Admin Bacitracin 1 appl 04/15/23 04:36 04/15/23 04:40 Bacitracin Oint 0.9 Gm Packet TOPICAL 04/15/23 04:37 1 appl ONCE ONE Administration Protocol Doxycycline Monohydrate 100 mg 04/15/23 04:28 04/15/23 04:36 Doxycycline Monohydrate 100 Mg Capsule PO 04/15/23 04:29 100 mg ONCE ONE Administration Cefazolin Sodium 1 gm/ Sodium 50 mls @ 100 mls/hr 04/15/23 04:28 04/15/23 05:09 Chloride IV 04/15/23 04:57 Infused ONCE ONE Infusion Medical Decision Making Medical Decision Making MDM Narrative: Patient has ulcerative lesion without significant deeper infection cleaned with peroxide give a course of antibiotics because of poor circulation advised to follow with PCP and local care as advised Lab Data [facility] Lab Attestation statement: I reviewed the patient's lab results. 04/15/23 03:46 04/15/23 03:46 Labs: Lab Results 04/15/23 Range/Units 03:46 WBC 4.9 (4.8-10.8) X10*3/uL RBC 3.58 L (4.60-5.80) X10*6/uL Hgb 11.2 L (14.0-18.0) g/dl Hct 34.7 L (42.0-52.0) % MCV 96.9 (80.0-98.0) fL MCH 31.3 (27.0-33.0) pg MCHC 32.3 (31.0-36.0) g/dl RDW 14.1 (11.0-16.0) % Plt Count 157 L D (160-400) X10*3/uL MPV 11.1 (9.4-12.4) fL Immature Gran % (Auto) 0.0 (0.0-0.4) % Neut % (Auto) 46.5 (45-73) % Lymph % (Auto) 41.8 H (20-40) % [place] % (Auto) 8.4 (2-11) % Eos % (Auto) 2.5 (0-4) % Baso % (Auto) 0.8 (0-2) % Lymph # (Auto) 2.0 (1.2-4.9) X10*3/uL [place] # (Auto) 0.4 (0.1-1.2) X10*3/uL Eos # (Auto) 0.1 (0.0-0.4) X10*3/uL Baso # (Auto) 0.0 (0.0-0.2) X10*3/uL Abs Immat Gran (auto) 0.00 (0.00-0.03) X10*3/uL Absolute Neuts (auto) 2.3 (2.0-8.3) x10*3/uL Absolute Nucleated RBC 0.000 (0.0-0.012) X10*3/uL Nucleated RBC % (auto) 0.0 (0.0-0.2) /100WBC Sodium 147 H (135-145) mmol/L Potassium 4.0 (3.3-5.1) mmol/L Chloride 111 H (96-108) mmol/L Carbon Dioxide 26 (22-29) mmol/L Anion Gap 14 (12-20) BUN 14 (9-16) mg/dL Creatinine 0.84 (0.5-1.4) mg/dL Estim Creat Clear Calc 81.8 Estimated GFR > 60 Random Glucose 108 (60-115) mg/dL Calcium 9.3 (8.4-10.2) mg/dL Total Bilirubin 0.2 (0.0-1.0) mg/dL AST 17 (5-37) U/L ALT 12 (0-40) U/L Alkaline Phosphatase 69 (39-117) U/L Total Protein 7.3 (6.5-8.0) g/dL Albumin 3.8 (3.5-5.0) g/dL Discharge Plan Discharge Clinical Impression: Non-healing wound of lower extremity Patient Disposition: Home, Self-Care Instructions: Chronic Wounds (ED) Additional Instructions: Local care as advised use peroxide to clean the wound Follow-up with PCP/food clinic Take antibiotics as prescribed Apply antibiotic ointment twice daily Report to the ER if worsening of the wound Prescriptions: New cephalexin 500 mg capsule 500 mg PO QID 10 Days Qty: 40 0RF doxycycline hyclate 100 mg tablet 100 mg PO BID Qty: 20 0RF mupirocin 2 % ointment 1 appl topical BID Qty: 22 0RF No Action cephalexin 500 mg capsule 500 mg PO Q8H 7 Days Qty: 21 0RF doxycycline monohydrate 100 mg capsule 100 mg PO BID Qty: 14 0RF tramadol 50 mg tablet 50 mg PO TID PRN (Reason: pain) Qty: 6 0RF cyclobenzaprine 10 mg tablet 10 mg PO TID PRN (Reason: muscle spasm) Qty: 20 0RF amoxicillin-pot clavulanate 875-125 mg tablet 1 tab PO BID 7 Days Qty: 14 0RF loperamide [Imodium A-D] 2 mg tablet 2 mg PO QID PRN (Reason: loose stool) Qty: 7 0RF prednisone 20 mg tablet 40 mg PO DAILY 4 Days Qty: 8 0RF mupirocin 2 % ointment 1 appl topical BID 7 Days Qty: 15 0RF Interventions: ED Discharge Assessment Last Done: 04/15/23 05:51 Discharge Date/Time: 04/15/23 05:51
[2023-04-15] MEDS: Doxycycline Monohydrate 100 MG CAPSULE PO (04:36)
[2023-04-15] MEDS: Bacitracin Oint 0.9 GM PACKET 1 APPL TOPICAL (04:40)
[2023-04-15 04:49] VITALS: BP 163/78; PULSE 50; RESP 12; TEMP 36.7; O2SAT 98
== END 2023-04-15 05:51 | disposition home or self-care (01) ==
PROVIDERS: Emergency Provider Internal Medicine; PCP Nurse Practitioner Family
DX: L97.329 Non-pressure chronic ulcer of left ankle with unspecified severity (principal)
CPT/HCPCS: 36415; 80053; 85025; 96365; 99284; J0690; J2704; J3010

== ENCOUNTER 2023-04-21 13:59 | Outpatient (REF) | payer OTHER, SELFPAY ==
[2023-04-21 16:09] LABS: Ferritin 675 ng/mL (20-250)
== END 2023-04-21 14:00 | disposition home or self-care (01) ==
LOC: HO.BBR 13:59
PROVIDERS: PCP Nurse Practitioner Family; Visit Provider Internal Medicine Hematology & Oncology
DX: E83.110 Hereditary hemochromatosis (principal)
CPT/HCPCS: 36415; 82728

== ENCOUNTER 2023-05-06 13:56 | Outpatient (REF) | payer OTHER, SELFPAY ==
[2023-05-06 15:21] LABS: Ferritin 545 ng/mL (20-250)
== END 2023-05-06 13:57 | disposition home or self-care (01) ==
LOC: HO.BBR 13:56
PROVIDERS: PCP Nurse Practitioner Family; Visit Provider Internal Medicine Hematology & Oncology
DX: E83.110 Hereditary hemochromatosis (principal)
CPT/HCPCS: 36415; 82728

== ENCOUNTER 2023-05-19 13:01 | Outpatient (REF) | payer OTHER, SELFPAY ==
[2023-05-19 15:00] LABS: Ferritin 530 ng/mL (20-250)
== END 2023-05-19 13:02 | disposition home or self-care (01) ==
LOC: HO.BBR 13:01
PROVIDERS: PCP Nurse Practitioner Family; Visit Provider Internal Medicine Hematology & Oncology
DX: E83.110 Hereditary hemochromatosis (principal)
CPT/HCPCS: 36415; 82728

== ENCOUNTER 2023-06-02 13:45 | Outpatient (REF) | payer OTHER, SELFPAY ==
[2023-06-02 15:01] LABS: Ferritin 352 ng/mL (20-250)
== END 2023-06-02 13:46 | disposition home or self-care (01) ==
LOC: HO.BBR 13:45
PROVIDERS: PCP Nurse Practitioner Family; Visit Provider Internal Medicine Hematology & Oncology
DX: E83.110 Hereditary hemochromatosis (principal)
CPT/HCPCS: 36415; 82728

== ENCOUNTER 2023-06-16 13:51 | Outpatient (REF) | payer OTHER, SELFPAY ==
[2023-06-16 16:04] LABS: Ferritin 515 ng/mL (20-250)
== END 2023-06-16 13:52 | disposition home or self-care (01) ==
LOC: HO.BBR 13:51
PROVIDERS: PCP Nurse Practitioner Family; Visit Provider Internal Medicine Hematology & Oncology
DX: E83.110 Hereditary hemochromatosis (principal)
CPT/HCPCS: 36415; 82728

== ENCOUNTER 2023-06-30 13:42 | Outpatient (REF) | payer OTHER, SELFPAY ==
[2023-06-30 15:53] LABS: Ferritin 542 ng/mL (20-250)
== END 2023-06-30 13:43 | disposition home or self-care (01) ==
LOC: HO.BBR 13:42
PROVIDERS: PCP Nurse Practitioner Family; Visit Provider Internal Medicine Hematology & Oncology
DX: E83.110 Hereditary hemochromatosis (principal)
CPT/HCPCS: 36415; 82728

== ENCOUNTER 2023-07-08 22:28 | Emergency (ER) | payer OTHER, SELFPAY ==
[2023-07-08 23:14] VITALS: BP 163/73; PULSE 54; RESP 18; TEMP 37.1; O2SAT 100; BMI 23.5
--- NOTE | 2023-07-08 23:54 | MHC.EDTECH ---
Brought to triage area,labs drawn and sent to lab.
[2023-07-09 00:03] LABS: MANUAL DIFF FLAG NO
[2023-07-09 00:16] LABS: Basophils Percent Auto 0.6 % (0-2); Eosinophils Absolute Auto 0.2 X10*3/uL (0.0-0.4); Eosinophils Percent Auto 3.4 % (0-4); Hematocrit 35.8 % (42.0-52.0); Imm Gran Abs Auto 0.01 X10*3/uL (0.00-0.03); Imm Gran Pct Auto 0.2 % (0.0-0.4); Lymphocytes Absolute Auto 1.8 X10*3/uL (1.2-4.9); Mean Corpuscular HGB Conc 33.5 g/dl (31.0-36.0); Mean Corpuscular Hemoglobin 30.4 pg (27.0-33.0); Mean Corpuscular Volume 90.6 fL (80.0-98.0); Mean Platelet Volume 10.9 fL (9.4-12.4); Monocytes Absolute Auto 0.5 X10*3/uL (0.1-1.2); Monocytes Percent Auto 10.3 % (2-11); Neutrophils Absolute Auto 2.7 x10*3/uL (2.0-8.3); Neutrophils Percent Auto 50.5 % (45-73); Platelet Count 148 X10*3/uL (160-400); Red Blood Count 3.95 X10*6/uL (4.60-5.80); Red Cell Distribution Width 15.2 % (11.0-16.0); White Blood Count 5.3 X10*3/uL (4.8-10.8)
[2023-07-09 00:20] LABS: Alanine Aminotransferase 12 U/L (0-40); Albumin Level 3.9 g/dL (3.5-5.0); Alkaline Phosphatase 83 U/L (39-117); Anion Gap 10 (12-20); Aspartate Amino Transferase 18 U/L (5-37); Bilirubin Total 0.3 mg/dL (0.0-1.0); Blood Urea Nitrogen 18 mg/dL (9-16); Calcium 9.2 mg/dL (8.4-10.2); Carbon Dioxide 26 mmol/L (22-29); Chloride 111 mmol/L (96-108); Estimated Glomerular Filt Rate > 60; Glucose Random 115 mg/dL (60-115); Potassium 4.1 mmol/L (3.3-5.1); Sodium 143 mmol/L (135-145); Total Protein 7.5 g/dL (6.5-8.0)
--- NOTE | 2023-07-09 01:15 | ED.WOUNDLAC ---
HPI - Wound/Laceration General Chief Complaint: Wound/Laceration Stated Complaint: wound on left leg Time Seen by Provider: 07/09/23 01:14 Source: patient and family (, Iris) Mode of arrival: ambulatory Limitations: language barrier (Patient speaks Sen[place]alese only, patient's speaks [place]e and Lithuanian, translator/interpreter used) History of Present Illness HPI narrative: 72-year-old male with a history of peripheral vascular disease/poor circulation who presents emergency department for evaluation of a wound to his left leg. The states that the patient has had wounds to his left leg in the past and has required wound care management in order to heal them. He states that he bumped his leg proximally 1 month prior and since then has developed a wound to his left lateral leg which is gotten worse over the last week. He states that he is having pain around the wound. He denied fever, chills, fatigue, nausea, vomiting, loss of appetite. Related Data Previous Rx's ?Medication ?Instructions ?Recorded cephalexin 500 mg capsule 500 mg PO Q8H 7 days #21 caps 07/22/20 doxycycline monohydrate 100 mg 100 mg PO BID #14 caps 07/22/20 capsule tramadol 50 mg tablet 50 mg PO TID PRN pain #6 tabs 07/22/20 cyclobenzaprine 10 mg tablet 10 mg PO TID PRN muscle spasm #20 04/01/21 tabs amoxicillin 875 mg-potassium 1 tab PO BID 7 days #14 tabs 05/28/22 clavulanate 125 mg tablet loperamide 2 mg tablet (Imodium 2 mg PO QID PRN loose stool #7 tabs 05/28/22 A-D) mupirocin 2 % topical ointment 1 appl topical BID 7 days #15 grams 02/26/23 prednisone 20 mg tablet 40 mg (2 x 20 mg) PO DAILY 4 days 02/26/23 #8 tabs cephalexin 500 mg capsule 500 mg PO QID 10 days #40 caps 04/15/23 doxycycline hyclate 100 mg tablet 100 mg PO BID #20 tabs 04/15/23 mupirocin 2 % topical ointment 1 appl topical BID #22 grams 04/15/23 acetaminophen 500 mg tablet 1,000 mg (2 x 500 mg) PO Q6H PRN 07/09/23 (Tylenol Extra Strength) fever or pain #20 tabs cephalexin 500 mg capsule 500 mg PO QID 7 days #28 caps 07/09/23 doxycycline hyclate 100 mg tablet 100 mg PO Q12H 7 days #14 tabs 07/09/23 Allergies Allergy/AdvReac Type Severity Reaction Status Date / Time naproxen [From Anaprox] Allergy Rash Verified 07/08/23 23:19 Review of Systems Review of Systems: Yes all other systems are reviewed and are negative [facility] Past Medical History [facility] Narrative: Social history: He lives with his , he denies tobacco, alcohol and drug use Medical History No known health problems Social History Social History Patient Tobacco Use Status: Never used Tobacco Advance Directives: No Advance Directives Information Provided: Yes Physical Exam Vital Signs: Vital Signs: Last Vital Signs Temp 98.7 F 07/08/23 23:14 Pulse 54 07/08/23 23:14 Resp 18 07/08/23 23:14 BP 163/73 H 07/08/23 23:14 Pulse Ox 100 07/08/23 23:14 O2 Del Method Room Air 07/08/23 23:14 BMI result Body Mass Index 23.5 Ship vital signs revealed an elevated blood pressure of 163/73 otherwise unremarkable Exam: General: Awake, alert in no distress Extremities: The patient has a 2 cm circular wound to his lateral aspect of his left lower extremity just above the ankle, there is surrounding erythema with slight increased warmth, there is granulation tissue noted in the wound with a serous discharge but no purulent discharge. Medical Decision Making Medical Decision Making [facility] Narrative: 72-year-old male with a history of peripheral vascular disease/poor circulation who bumped his leg proximally 1 month prior now has an infected ulcer to the left lateral aspect of his leg just above the ankle with surrounding erythema. Patient had no concerning systemic symptoms. Vital signs were normal. Differential diagnosis: ?Includes but is not limited to cellulitis, infected leg wound, anemia, electrolyte abnormalities Following evaluation was ordered: CBC, CMP Patient was initially treated with the following: Doxycycline 100 mg orally, Keflex 100 mg orally, Tylenol 975 mg orally, wet to dry dressing to wound Course: 01:37 My interpretation patient's laboratory evaluation as follows: WBC normal 5300. Mild anemia with an H&H of 12.0 and 35.8, low platelet count [id number]. CMP revealed elevated chloride 111, elevated BUN 18 with normal creatinine of 0.68, normal glucose 115. Patient's evaluation is consistent with cellulitis secondary to a nonhealing skin ulcer/wound. states he has had similar problem with healing wounds in the past secondary to poor circulation. The wound was dressed with a wet-to-dry dressing and I did advise the to change distress and daily. Patient was given doxycycline 100 mg orally and Keflex 500 mg orally. He was prescribed doxycycline 100 mg every 12 hours for 7 days and Keflex 500 mg 4 times a day for 7 days. He was also given Tylenol 975 mg in the emergency department for his pain. He was prescribed Tylenol as well. I advised the to contact the wound care center on 07/11/2023 your inch follow-up for acute wound care management. Admission/Observation Consideration of admission/observation: Escalation of care including admission/observation considered Lab Data MDM Lab Attestation statement: I reviewed the patient's lab results. 07/08/23 23:52 07/08/23 23:52 Labs: Lab Results 07/08/23 Range/Units 23:52 WBC 5.3 (4.8-10.8) X10*3/uL RBC 3.95 L (4.60-5.80) X10*6/uL Hgb 12.0 L (14.0-18.0) g/dl Hct 35.8 L (42.0-52.0) % MCV 90.6 (80.0-98.0) fL MCH 30.4 (27.0-33.0) pg MCHC 33.5 (31.0-36.0) g/dl RDW 15.2 (11.0-16.0) % Plt Count 148 L (160-400) X10*3/uL MPV 10.9 (9.4-12.4) fL Immature Gran % (Auto) 0.2 (0.0-0.4) % Neut % (Auto) 50.5 (45-73) % Lymph % (Auto) 35.0 (20-40) % [place] % (Auto) 10.3 (2-11) % Eos % (Auto) 3.4 (0-4) % Baso % (Auto) 0.6 (0-2) % Lymph # (Auto) 1.8 (1.2-4.9) X10*3/uL [place] # (Auto) 0.5 (0.1-1.2) X10*3/uL Eos # (Auto) 0.2 (0.0-0.4) X10*3/uL Baso # (Auto) 0.0 (0.0-0.2) X10*3/uL Abs Immat Gran (auto) 0.01 (0.00-0.03) X10*3/uL Absolute Neuts (auto) 2.7 (2.0-8.3) x10*3/uL Absolute Nucleated RBC 0.000 (0.0-0.012) X10*3/uL Nucleated RBC % (auto) 0.0 (0.0-0.2) /100WBC Sodium 143 (135-145) mmol/L Potassium 4.1 (3.3-5.1) mmol/L Chloride 111 H (96-108) mmol/L Carbon Dioxide 26 (22-29) mmol/L Anion Gap 10 L (12-20) BUN 18 H (9-16) mg/dL Creatinine 0.68 (0.5-1.4) mg/dL Estim Creat Clear Calc 101.0 Estimated GFR > 60 Random Glucose 115 (60-115) mg/dL Calcium 9.2 (8.4-10.2) mg/dL Total Bilirubin 0.3 (0.0-1.0) mg/dL AST 18 (5-37) U/L ALT 12 (0-40) U/L Alkaline Phosphatase 83 (39-117) U/L Total Protein 7.5 (6.5-8.0) g/dL Albumin 3.9 (3.5-5.0) g/dL Independent Historian Clinical information obtained from an independent historian. History obtained from or confirmed by: Spouse Prescription Management I considered prescription management with: Pain Medication and Antibiotic Chronic Conditions Patient?s care impacted by: Other (Peripheral vascular disease) Discharge Plan Discharge Clinical Impression: Peripheral vascular disease Skin ulcer Qualifiers: Non-pressure ulcer stage: unspecified non-pressure ulcer stage Qualified Code(s): L98.499 - Non-pressure chronic ulcer of skin of other sites with unspecified severity Cellulitis Qualifiers: Site of cellulitis: extremity Site of cellulitis of extremity: lower extremity Laterality: left Qualified Code(s): L03.116 - Cellulitis of left lower limb Patient Disposition: Home, Self-Care Instructions: Cellulitis (ED) Additional Instructions: Take Keflex (cephalexin) 500 mg pills, 1 pill 3 times a day for 7 days. Take doxycycline 100 mg, 1 pill every 12 hours for 7 days Take Tylenol (acetaminophen) 500 mg pills, 2 pills every 6 hours as needed for pain or fever. Use a wet to dry saline dressing daily until you are seen by the wound care clinic. Call the wound care clinic on 07/11/2023 to get follow-up for your new skin ulcer and infection of your skin. Please return to the emergency department if your symptoms get worse or if you develop any symptoms that are concerning to you. Prescriptions: New acetaminophen [Tylenol Extra Strength] 500 mg tablet 1,000 mg PO Q6H PRN (Reason: fever or pain) Qty: 20 0RF cephalexin 500 mg capsule 500 mg PO QID 7 Days Qty: 28 0RF doxycycline hyclate 100 mg tablet 100 mg PO Q12H 7 Days Qty: 14 0RF No Action cephalexin 500 mg capsule 500 mg PO Q8H 7 Days Qty: 21 0RF doxycycline monohydrate 100 mg capsule 100 mg PO BID Qty: 14 0RF tramadol 50 mg tablet 50 mg PO TID PRN (Reason: pain) Qty: 6 0RF cyclobenzaprine 10 mg tablet 10 mg PO TID PRN (Reason: muscle spasm) Qty: 20 0RF amoxicillin-pot clavulanate 875-125 mg tablet 1 tab PO BID 7 Days Qty: 14 0RF loperamide [Imodium A-D] 2 mg tablet 2 mg PO QID PRN (Reason: loose stool) Qty: 7 0RF prednisone 20 mg tablet 40 mg PO DAILY 4 Days Qty: 8 0RF mupirocin 2 % ointment 1 appl topical BID 7 Days Qty: 15 0RF cephalexin 500 mg capsule 500 mg PO QID 10 Days Qty: 40 0RF doxycycline hyclate 100 mg tablet 100 mg PO BID Qty: 20 0RF mupirocin 2 % ointment 1 appl topical BID Qty: 22 0RF Referrals: [facility] Wound Care Management [Provider Group] - 1 week (Left lower extremity skin ulcer with cellulitis times 1 month, worse x3 days, peripheral vascular disease) Print Language: [place]e
[2023-07-09] MEDS: Acetaminophen 325 MG TABLET 975 MG PO (02:42)
[2023-07-09] MEDS: Doxycycline Monohydrate 100 MG CAPSULE PO (02:42)
[2023-07-09] MEDS: cephALEXin 500 MG CAPSULE PO (02:42)
[2023-07-09 03:43] VITALS: BP 142/76; PULSE 62; RESP 16; TEMP 37; O2SAT 97
== END 2023-07-09 02:47 | disposition home or self-care (01) ==
PROVIDERS: Emergency Provider Emergency Medicine Emergency Medical Services; PCP Nurse Practitioner Family
DX: L97.229 Non-pressure chronic ulcer of left calf with unspecified severity (principal); L03.116 Cellulitis of left lower limb; M79.662 Pain in left lower leg; Z79.899 Other long term (current) drug therapy
CPT/HCPCS: 36415; 80053; 85025; 99283; 99284

== ENCOUNTER 2023-07-14 13:48 | Outpatient (REF) | payer OTHER, SELFPAY ==
[2023-07-14 16:35] LABS: Ferritin 717 ng/mL (20-250)
== END 2023-07-14 13:49 | disposition home or self-care (01) ==
LOC: HO.BBR 13:48
PROVIDERS: PCP Nurse Practitioner Family; Visit Provider Internal Medicine Hematology & Oncology
DX: E83.110 Hereditary hemochromatosis (principal)
CPT/HCPCS: 36415; 82728

== ENCOUNTER 2023-07-28 14:09 | Outpatient (REF) | payer OTHER, SELFPAY ==
[2023-07-28 15:47] LABS: Ferritin 585 ng/mL (20-250)
== END 2023-07-28 14:10 | disposition home or self-care (01) ==
LOC: HO.BBR 14:09
PROVIDERS: PCP Nurse Practitioner Family; Visit Provider Internal Medicine Hematology & Oncology
DX: E83.110 Hereditary hemochromatosis (principal)
CPT/HCPCS: 36415; 82728

== ENCOUNTER 2023-08-11 13:51 | Outpatient (REF) | payer OTHER, SELFPAY ==
[2023-08-11 16:02] LABS: Ferritin 536 ng/mL (20-250)
== END 2023-08-11 13:52 | disposition home or self-care (01) ==
LOC: HO.BBR 13:51
PROVIDERS: PCP Nurse Practitioner Family; Visit Provider Internal Medicine Hematology & Oncology
DX: E83.110 Hereditary hemochromatosis (principal)
CPT/HCPCS: 36415; 82728

== ENCOUNTER 2023-08-25 13:57 | Outpatient (REF) | payer OTHER, SELFPAY ==
[2023-08-25 16:04] LABS: Ferritin 611 ng/mL (20-250)
== END 2023-08-25 13:58 | disposition home or self-care (01) ==
LOC: HO.BBR 13:57
PROVIDERS: PCP Nurse Practitioner Family; Visit Provider Internal Medicine Hematology & Oncology
DX: E83.110 Hereditary hemochromatosis (principal)
CPT/HCPCS: 36415; 82728

== ENCOUNTER 2023-09-08 14:07 | Outpatient (REF) | payer OTHER, SELFPAY ==
[2023-09-08 15:48] LABS: Ferritin 432 ng/mL (20-250)
== END 2023-09-08 14:08 | disposition home or self-care (01) ==
LOC: HO.BBR 14:07
PROVIDERS: PCP Nurse Practitioner Family; Visit Provider Internal Medicine Hematology & Oncology
DX: E83.110 Hereditary hemochromatosis (principal)
CPT/HCPCS: 36415; 82728

== ENCOUNTER 2023-09-29 13:44 | Outpatient (REF) | payer OTHER, SELFPAY ==
[2023-09-29 15:01] LABS: Ferritin 456 ng/mL (20-250)
== END 2023-09-29 13:45 | disposition home or self-care (01) ==
LOC: HO.BBR 13:44
PROVIDERS: PCP Nurse Practitioner Family; Visit Provider Internal Medicine Hematology & Oncology
DX: E83.110 Hereditary hemochromatosis (principal)
CPT/HCPCS: 36415; 82728

== ENCOUNTER 2023-10-13 13:53 | Outpatient (REF) | payer OTHER, SELFPAY ==
[2023-10-13 15:20] LABS: Ferritin 420 ng/mL (20-250)
== END 2023-10-13 13:54 | disposition home or self-care (01) ==
LOC: HO.BBR 13:53
PROVIDERS: PCP Nurse Practitioner Family; Visit Provider Internal Medicine Hematology & Oncology
DX: E83.110 Hereditary hemochromatosis (principal)
CPT/HCPCS: 36415; 82728

== ENCOUNTER 2023-10-27 13:37 | Outpatient (REF) | payer OTHER, SELFPAY ==
[2023-10-27 15:15] LABS: Ferritin 323 ng/mL (20-250)
== END 2023-10-27 13:38 | disposition home or self-care (01) ==
LOC: HO.BBR 13:37
PROVIDERS: PCP Nurse Practitioner Family; Visit Provider Internal Medicine Hematology & Oncology
DX: E83.110 Hereditary hemochromatosis (principal)
CPT/HCPCS: 36415; 82728

== ENCOUNTER 2023-11-10 13:51 | Outpatient (REF) | payer OTHER, SELFPAY ==
[2023-11-10 15:20] LABS: Ferritin 361 ng/mL (20-250)
== END 2023-11-10 13:52 | disposition home or self-care (01) ==
LOC: HO.BBR 13:51
PROVIDERS: PCP Nurse Practitioner Family; Visit Provider Internal Medicine Hematology & Oncology
DX: E83.110 Hereditary hemochromatosis (principal)
CPT/HCPCS: 36415; 82728

== ENCOUNTER 2023-11-17 20:20 | Emergency (ER) | payer OTHER, SELFPAY ==
[2023-11-17 20:42] VITALS: BP 136/63; PULSE 55; RESP 16; TEMP 37.1; O2SAT 100; BMI 23.3
[2023-11-17 23:08] VITALS: BP 137/63; PULSE 46; RESP 20; TEMP 36.7; O2SAT 99
--- NOTE | 2023-11-18 00:53 | ED.GENADULT ---
HPI - General Adult General Chief complaint: General Medical Stated complaint: rash all over body Time Seen by Provider: 11/18/23 00:44 Source: patient and family Mode of arrival: ambulatory Limitations: no limitations History of Present Illness ED Provider: Dr. Kimberly Alfaro HPI narrative: patient comes to the emergency room complaining of itchy spots in his knees, upper extremities, back and upper extremities. patient denies any signs of infection. However, patient's has been applying antibiotic and topical Benadryl to help with the itching. patient states the lesion started about 2 weeks ago after going to a gym. Related Data Previous Rx's ?Medication ?Instructions ?Recorded cephalexin 500 mg capsule 500 mg PO Q8H 7 days #21 caps 07/22/20 doxycycline monohydrate 100 mg 100 mg PO BID #14 caps 07/22/20 capsule tramadol 50 mg tablet 50 mg PO TID PRN pain #6 tabs 07/22/20 cyclobenzaprine 10 mg tablet 10 mg PO TID PRN muscle spasm #20 04/01/21 tabs amoxicillin 875 mg-potassium 1 tab PO BID 7 days #14 tabs 05/28/22 clavulanate 125 mg tablet loperamide 2 mg tablet (Imodium 2 mg PO QID PRN loose stool #7 tabs 05/28/22 A-D) mupirocin 2 % topical ointment 1 appl topical BID 7 days #15 grams 02/26/23 prednisone 20 mg tablet 40 mg (2 x 20 mg) PO DAILY 4 days 02/26/23 #8 tabs cephalexin 500 mg capsule 500 mg PO QID 10 days #40 caps 04/15/23 doxycycline hyclate 100 mg tablet 100 mg PO BID #20 tabs 04/15/23 mupirocin 2 % topical ointment 1 appl topical BID #22 grams 04/15/23 acetaminophen 500 mg tablet 1,000 mg (2 x 500 mg) PO Q6H PRN 07/09/23 (Tylenol Extra Strength) fever or pain #20 tabs cephalexin 500 mg capsule 500 mg PO QID 7 days #28 caps 07/09/23 doxycycline hyclate 100 mg tablet 100 mg PO Q12H 7 days #14 tabs 07/09/23 hydrocortisone 2.5 % topical cream 1 appl topical QID #28 grams 11/18/23 hydroxyzine HCl 25 mg tablet 25 mg PO QID PRN itching #20 tabs 11/18/23 Allergies Allergy/AdvReac Type Severity Reaction Status Date / Time naproxen [From Anaprox] Allergy Rash Verified 11/17/23 20:48 Review of Systems Review of Systems: Constitutional : No Weight loss, No Fever, No Chills, No Night Sweats, No Fatigue, No Malaise ENT/Mouth : No Hearing loss, No Ear Pain, No Nasal Congestion, No Sinus Pain, No Hoarseness, No sore throat, No Rhinorrhea, No Swallowing Difficulty Eyes: No Eye Pain, No Swelling, No Redness, No Foreign Body, No Discharge, No Vision Changes Cardiovascular : No Chest Pain, No SOB, No Dyspnea on Exertion, No Orthopnea, No Edema, No Palpitations Respiratory : No Cough, No Sputum, No Wheezing, No Smoke Exposure, No Dyspnea Gastrointestinal : No Nausea, No Vomiting, No Diarrhea, No Constipation, No abdominal Pain, No Hematochezia, No Melena Genitourinary : no irregular bleeding, No Dysuria, No Urinary Frequency, No Hematuria, No Urinary Incontinence, No Urgency, No Flank Pain, No Urinary Flow Changes, No Hesitancy Musculoskeletal : No joint pain, No Myalgias, No Joint Swelling Skin : Complaining of patchy lesions that are itchy Neuro : No Weakness, No Numbness, No Paresthesias, No Loss of Consciousness, No Dizziness, No Headache Psych : No Anxiety/Panic, No Depression, No SI/HI/AH/VH, No Social Issues, Heme/Lymph: No Bruising, No Bleeding,No Lymphadenopathy Endocrine : No Polyuria, No Polydipsia, No Temperature Intolerance [facility] Past Medical History Medical History No known health problems Social History Social History Patient Tobacco Use Status: Never used Tobacco Smoked in Last 30 Days: No Use of substances other than those prescribed or required for medical reasons: No Advance Directives: No Advance Directives Information Provided: No Do you have a plan to hurt others: No Plan Physical Exam ED Vital Signs: Vital Signs - 24 hr 11/17/23 20:42 11/17/23 23:08 Temperature 98.8 F 98.1 F Pulse Rate 55 46 L Respiratory Rate 16 20 Blood Pressure 136/63 137/63 Pulse Oximetry 100 99 Oxygen Delivery Method Room Air Room Air BMI result Body Mass Index 23.3 Const Other: Appearance: Alert. Oriented X3. No acute distress. Eyes: Pupils equal, round and reactive to light. ENT: Pharynx normal. Neck: Normal inspection. Neck supple. No lymph nodes noted. No crepitus CVS: Normal heart rate and rhythm. Pulses normal. Normal S1 and S2 Respiratory: No respiratory distress. Breath sounds normal. No Wheezing. No rales Abdomen: Soft and nontender. No rigidity. No distention. Skin: Patchy lesions between 1 cm in diameter up to 2 cm in arms, legs and back. Extremities: No lower extremity edema. No Lacerations. No Rash Neuro: Oriented X 3. No motor deficit. No sensory deficit. Moving all extremities. No slurred speech. CN 2 through 12 grossly intact Psych: calm, cooperative, normal affect Medical Decision Making Medical Decision Making MDM Narrative: I discussed the physical exam with the patient, the lesions do not look like fungal infections, they look like dermatitis which were scratched by the patient due to being itchy. Differential Diagnosis Differential Diagnoses: The differential diagnosis associated with the presentation includes ( Eczema, contact dermatitis) Discharge Plan Discharge Clinical Impression: Contact dermatitis Patient Disposition: Home, Self-Care Instructions: Contact Dermatitis (ED) Additional Instructions: Please follow-up with your primary care physician tomorrow. If you have any worsening or new symptoms, please return to the emergency room or call 911 Prescriptions: New hydrocortisone 2.5 % cream 1 appl topical QID Qty: 28 0RF hydroxyzine HCl 25 mg tablet 25 mg PO QID PRN (Reason: itching) Qty: 20 0RF No Action cephalexin 500 mg capsule 500 mg PO Q8H 7 Days Qty: 21 0RF doxycycline monohydrate 100 mg capsule 100 mg PO BID Qty: 14 0RF tramadol 50 mg tablet 50 mg PO TID PRN (Reason: pain) Qty: 6 0RF cyclobenzaprine 10 mg tablet 10 mg PO TID PRN (Reason: muscle spasm) Qty: 20 0RF amoxicillin-pot clavulanate 875-125 mg tablet 1 tab PO BID 7 Days Qty: 14 0RF loperamide [Imodium A-D] 2 mg tablet 2 mg PO QID PRN (Reason: loose stool) Qty: 7 0RF prednisone 20 mg tablet 40 mg PO DAILY 4 Days Qty: 8 0RF mupirocin 2 % ointment 1 appl topical BID 7 Days Qty: 15 0RF cephalexin 500 mg capsule 500 mg PO QID 10 Days Qty: 40 0RF doxycycline hyclate 100 mg tablet 100 mg PO BID Qty: 20 0RF mupirocin 2 % ointment 1 appl topical BID Qty: 22 0RF acetaminophen [Tylenol Extra Strength] 500 mg tablet 1,000 mg PO Q6H PRN (Reason: fever or pain) Qty: 20 0RF cephalexin 500 mg capsule 500 mg PO QID 7 Days Qty: 28 0RF doxycycline hyclate 100 mg tablet 100 mg PO Q12H 7 Days Qty: 14 0RF Print Language: Portuguese
[2023-11-18] MEDS: diphenhydrAMINE HCL 25 MG CAPSULE 50 MG PO (00:56)
[2023-11-18 00:59] VITALS: BP 137/55; PULSE 50; RESP 17; TEMP 36.6; O2SAT 99
== END 2023-11-18 01:04 | disposition home or self-care (01) ==
PROVIDERS: Emergency Provider Emergency Medicine; PCP Nurse Practitioner Family
DX: L25.9 Unspecified contact dermatitis, unspecified cause (principal); Z79.899 Other long term (current) drug therapy
CPT/HCPCS: 99283; 99284

== ENCOUNTER 2023-11-24 13:45 | Outpatient (REF) | payer OTHER, SELFPAY ==
[2023-11-24 15:13] LABS: Ferritin 318 ng/mL (20-250)
== END 2023-11-24 13:46 | disposition home or self-care (01) ==
LOC: HO.BBR 13:45
PROVIDERS: PCP Nurse Practitioner Family; Visit Provider Internal Medicine Hematology & Oncology
DX: E83.110 Hereditary hemochromatosis (principal)
CPT/HCPCS: 36415; 82728

== ENCOUNTER 2023-12-08 14:25 | Outpatient (REF) | payer OTHER, SELFPAY | END 2023-12-08 14:26 | disposition home or self-care (01) | LOC: HO.BBR 14:25 | PROVIDERS: PCP Nurse Practitioner Family; Visit Provider Internal Medicine Hematology & Oncology | DX: Z13.89 Encounter for screening for other disorder (principal) ==

== ENCOUNTER 2023-12-22 14:11 | Outpatient (REF) | payer OTHER, SELFPAY | END 2023-12-22 14:12 | disposition home or self-care (01) | LOC: HO.BBR 14:11 | PROVIDERS: PCP Nurse Practitioner Family; Visit Provider Internal Medicine Hematology & Oncology | DX: Z13.89 Encounter for screening for other disorder (principal) ==

== ENCOUNTER 2024-01-19 13:54 | Outpatient (REF) | payer OTHER, SELFPAY ==
[2024-01-19 16:19] LABS: Ferritin 239 ng/mL (20-250)
== END 2024-01-19 13:55 | disposition home or self-care (01) ==
LOC: HO.BBR 13:54
PROVIDERS: PCP Nurse Practitioner Family; Visit Provider Internal Medicine Hematology & Oncology
DX: E83.110 Hereditary hemochromatosis (principal)
CPT/HCPCS: 36415; 82728

== ENCOUNTER 2024-02-02 13:57 | Outpatient (REF) | payer OTHER, SELFPAY | END 2024-02-02 13:58 | disposition home or self-care (01) | LOC: HO.BBR 13:57 | PROVIDERS: PCP Nurse Practitioner Family; Visit Provider Internal Medicine Hematology & Oncology | DX: Z13.89 Encounter for screening for other disorder (principal) ==

== ENCOUNTER 2024-02-23 14:01 | Outpatient (REF) | payer OTHER, SELFPAY ==
[2024-02-23 16:19] LABS: Ferritin 192 ng/mL (20-250)
== END 2024-02-23 14:02 | disposition home or self-care (01) ==
LOC: HO.BBR 14:01
PROVIDERS: PCP Nurse Practitioner Family; Visit Provider Internal Medicine Hematology & Oncology
DX: E83.110 Hereditary hemochromatosis (principal)
CPT/HCPCS: 36415; 82728

== ENCOUNTER 2024-04-05 15:05 | Outpatient (REF) | payer OTHER, SELFPAY | END 2024-04-05 15:06 | disposition home or self-care (01) | LOC: HO.BBR 15:05 | PROVIDERS: PCP Nurse Practitioner Family; Visit Provider Internal Medicine Hematology & Oncology | DX: Z13.89 Encounter for screening for other disorder (principal) ==

== ENCOUNTER 2024-05-03 14:13 | Outpatient (REF) | payer OTHER, SELFPAY ==
--- OUTSIDE RECORDS SUMMARY | 2024-05-03 14:17 | XMS_ITS | Clinical Summary ---
Author Organization [address] [facility] Address [address] [place] [address] Phone Care Team Providers Care Almond Blancher Hand Name Role Phone Dank Pfeiffer CHILD AND FAMILY SERVICES SPECIALIST Primary Care Provider Allergies Active Allergy Reactions Criticality Noted Date Comments Naproxen 02/09/2024 Medications cadexomer iodine (Iodosorb) 0.9 % gel Apply topically 1 (one) time each day if needed for wound care. Active cat.stocking, knee,reg,smal misc Active acetaminophen (TYLENOL) 500 mg tablet TAKE TWO TABLETS BY MOUTH EVERY 6 HOURS NEEDED FOR FEVER OR PAIN 4 Active betamethasone dipropionate (DIPROSONE) 0.05 % cream APPLY SPARINGLY TO PERIWOUND REDNESS ON LEFT LEG AND ANKLE WITH DRESSING CHANGES DIRECTED DAILY 4 Active ibuprofen (ADVIL,MOTRIN) 200 mg tablet 1 tablet (200 mg total) every 6 hours. Active Active Problems Problem Noted Date Diagnosed Date Insomnia 02/03/2024 Anemia 02/03/2024 Dyspepsia 02/03/2024 Chronic low back pain 02/03/2024 Encounters Date Type Department Care Team Description 03/19/2024 2:30 PM EST Office Visit Orthopedic Surgery [facility] [address] [address] Jakob Castro DPM Follow-up exam (Primary Dx) 02/09/2024 2:15 PM EST Consult [facility] [address] [address] Jakob Castro DPM Plantar fascial fibromatosis (Primary Dx); Equinus contracture of ankle from Last 3 Months Social History Tobacco Use Types Packs/Day Years Used Date Smoking Tobacco: Never Assessed Sex and Gender Information Value Date Recorded Sex Assigned at Not on file Legal Sex Male 3:32 PM EST Gender Identity Not on file Sexual Orientation Not on file Last Filed Vital Signs Vital Sign Reading Time Taken Comments Blood Pressure - - Pulse - - Temperature - - Respiratory Rate - - Oxygen Saturation - - Inhaled Oxygen Concentration - - Weight 70.3 kg (155 lb) 03/19/2024 2:51 PM EST Height 175.3 cm (5' 9.02 ) 03/19/2024 2:51 PM ES T Body Mass Index 22.88 03/19/2024 2:51 PM EST Plan of Treatment Health Maintenance Due Date Last Done Comments Pneumococcal Vaccine: 50+ Years (2 of 2 - PPSV23 or PCV20) 02/15/2019 02/15/2018 Zoster Vaccines (3 of 3) 06/02/2021 04/07/2021, 02/18 COVID-19 Vaccine ( season) 2023 06/01/2021, 12/03/2020, 11/12/2020 Influenza Vaccine (#1) 2023 , 02/15/2018, 02/18/2016, Additional history exists Abdominal Aortic Aneurysm (AAA) Screen 01/13/2024 Cholesterol Screening (Lipid Panel) 01/13/2024 Colorectal Cancer Screening: Colonoscopy 01/13/2024 Depression Screening 01/13/2024 Falls Risk Assessment 01/13/2024 Hepatitis C Screening 01/13/2024 Medicare Annual Wellness Visit 01/13/2024 Social Influencers of Health Screening 01/13/2024 DTaP,Tdap,and Td Vaccines (3 - Td or Tdap) 02/15/2026 02/16/2016, 04/16/2004 RSV Immunization Patients 60+ Years Old (1 - 1-dose 75+ series) 09/11/2027 HIB Vaccines Aged Out No longer eligi ble based on patient's age to complete this topic HPV Vaccines Aged Out No longer eligi ble based on patient's age to complete this topic Hepatitis A Vaccines Aged Out No long er eligible based on patient's age to complete this topic Hepatitis B Vaccines Aged Out No long er eligible based on patient's age to complete this topic IPV Vaccines Aged Out No longer eligi ble based on patient's age to complete this topic MMR Vaccines Aged Out No longer eligi ble based on patient's age to complete this topic Meningococcal ACWY Vaccine Aged Out N o longer eligible based on patient's age to complete this topic RSV Immunization Patients Under 20 months Aged Out No longer eligible based on patient's age to complete this topic Varicella Vaccines Aged Out No longer eligible based on patient's age to complete this topic Procedures Procedure Name Priority Date/Time Associated Diagnosis Comments XR FOOT 3+ VIEWS LEFT Routine 03/19/2024 2:53 PM EST Follow-up exam INJECTION TENDON OR LIGAMENT Routine 02/09/2024 2:15 PM EST Plantar fascial fibromatosis from Last 3 Months Results * XR Foot 3+ Views Left (03/19/2024 2:53 PM EST) Anatomical Region Laterality Modality Lower Extremities, Foot Left Computed Radiography Narrative 03/19/2024 5:43 PM EST Left foot 3 views No fracture. No radiopaque foreign Normal pedal radiographs us Jakob Castro DPM IMG XR PROCEDURES Final R esult * Injection tendon or ligament (02/09/2024 2:15 PM EST) Narrative Jakob Castro DPM - 02/09/2024 2:15 PM EST Jakob Castro DPM ? 02/09/2024 ??5:18 PM Injection tendon or ligament Indications: pain Details: 25 G needle Medications: 0.5 mL lidocaine (PF) 1 %; 20 mg triamcinolone acetonide 40 mg/mL Informed Consent: ??Site: ??Foot ligament tendon us Jakob Castro DPM IN CLINIC/BEDSIDE ORDERAB LES Final Result from Last 3 Months Insurance [facility] MEDICARE Member Subscriber Plan / Payer (Ef fective 2018-Present) Name:Justin Pelaez Relation to Subscriber:Self Name:Justin Pelaez Payer ID:[id number] Group ID:[id number] Type:Not on file Address: [place] [address] [address] [place] [phone] Care Teams Almond Blancher Hand Relationship Specialty Start Date End Date Dank Pfeiffer NP [address] [place] [address] PCP - General Nurse Practitioner 01/17/24
[2024-05-03 16:08] LABS: Ferritin 182 ng/mL (20-250)
== END 2024-05-03 14:14 | disposition home or self-care (01) ==
LOC: HO.BBR 14:13
PROVIDERS: PCP Nurse Practitioner Family; Visit Provider Internal Medicine Hematology & Oncology
DX: E83.119 Hemochromatosis, unspecified (principal)
CPT/HCPCS: 36415; 82728

== ENCOUNTER 2024-05-31 14:04 | Outpatient (REF) | payer OTHER, SELFPAY ==
--- OUTSIDE RECORDS SUMMARY | 2024-05-31 17:56 | XMS_ITS | Clinical Summary ---
Author Organization 175 [facility] Address [address] [place] [address] Phone Care Team Providers Care Shoe Repair Cobbler Name Role Phone Dank Pfeiffer ARCHITECTURAL ASSOCIATE Primary Care Provider Allergies Active Allergy Reactions [...] 2:30 PM EST Office Visit Orthopedic Surgery [facility] [address] [facility] [address] [place] [address] Jakob Castro DPM Follow-up exam (Primary Dx) from Last 3 Months Social History Tobacco [...] Vaccine: 50+ Years (2 of 2 - PPSV23) 02/15/2019 02/15/2018 Zoster Vaccines (3 of 3) 06/02/2021 04/07/2021, 02/18 COVID-19 Vaccine (4 - season) 2023 06/01/2021, 12/03/2020, 11/12/2020 Influenza Vaccine [...] patient's age to complete this topic Meningococcal B Vacine Aged Out No lo nger eligible based on patient's age to complete this topic RSV Immunization Patients Under 20 months Aged Out No longer eligible based on patient's age to complete this topic Varicella Vaccines Aged Out No longer eligible based on patient's age to complete this topic Procedures Procedure Name Priority Date/Time Associated Diagnosis Comments XR FOOT 3+ VIEWS LEFT Routine 03/19/2024 2:53 PM EST Follow-up exam from Last 3 Months Results * XR Foot 3+ Views Left (03/19/2024 2:53 PM EST) Anatomical Region Laterality Modality Lower Extremities, Foot Left Computed Radiography Narrative 03/19/2024 5:43 PM EST Left foot 3 views No fracture. No radiopaque foreign Normal pedal radiographs Jakob Castro DPM IMG XR PROCEDURES Final R esult from Last 3 Months Insurance [facility] MEDICARE Member Subscriber Plan / Payer (Ef fective 2018-Present) Name:Pelaez Justin Relation to Subscriber:Self Name:Benigno Justin Payer ID:[id number] Group ID:[id number] Type:Not on file Address: [facility] [place] [phone] Care Teams Shoe Repair Cobbler Relationship Specialty Start Date End Date Dank Pfeiffer NP [address] [place] [address] PCP - General Nurse Practitioner 01/17/24
== END 2024-05-31 14:05 | disposition home or self-care (01) ==
LOC: HO.BBR 14:04
PROVIDERS: PCP Nurse Practitioner Family; Visit Provider Internal Medicine Hematology & Oncology
DX: Z13.89 Encounter for screening for other disorder (principal)

== ENCOUNTER 2024-07-11 13:01 | Outpatient (REF) | payer OTHER, SELFPAY ==
[2024-07-11 14:20] LABS: Ferritin 202 ng/mL (20-250)
--- OUTSIDE RECORDS SUMMARY | 2024-07-11 15:24 | XMS_ITS | Clinical Summary ---
Author Organization [address] [place] [address] Address [address] [place] [address] Phone Care Team Providers Care Paver Layer Name Role Phone Dank Pfeiffer MICROSOFT DEVELOPER Primary Care Provider Allergies Active Allergy Reactions [...] Dyspepsia 02/03/2024 Chronic low back pain 02/03/2024 Social History Tobacco Use Types Packs/Day Years [...] (4 - season) 2023 06/01/2021, 12/03/2020, 11/12/2020 Abdominal Aortic Aneurysm (AAA) Screen 01/13/2024 Cholesterol Screening (Lipid Panel) 01/13/2024 Colorectal Cancer Screening: Colonoscopy 01/13/2024 Depression Screening 01/13/2024 Falls Risk Assessment 01/13/2024 Hepatitis C Screening 01/13/2024 Medicare Annual Wellness Visit 01/13/2024 Social Influencers of Health Screening 01/13/2024 Influenza Vaccine (Season Ended) 2024 03/04/2023, 02/15/2018, 02/18/2016, Additional history exists DTaP,Tdap,and Td Vaccines (3 - Td or Tdap) 02/15/2026 02/16/2016, 04/16/2004 RSV Immunization Adult Patients (1 - 1-dose 75+ series) 09/11/2027 HIB [...] age to complete this topic Meningococcal B Vaccine Aged Out No l onger eligible based on patient's age to complete this topic RSV Immunization Patients Under 20 months Aged Out No longer eligible based on patient's age to complete this topic Varicella Vaccines Aged Out No longer eligible based on patient's age to complete this topic Insurance [facility] MEDICARE Member Subscriber Plan / Payer (Ef fective 2018-Present) Name:Justin Pelaez Relation to Subscriber:Self Name:Justin Pelaez Payer ID:[id number] Group ID:[id number] Type:Not on file Address: [place] [address] [address] [place] [phone] Care Teams Paver Layer Relationship Specialty Start Date End Date Dank Pfeiffer NP [address] [place] [phone] PCP - General Nurse Practitioner 01/17/24
== END 2024-07-11 13:02 | disposition home or self-care (01) ==
LOC: HO.BBR 13:01
PROVIDERS: PCP Nurse Practitioner Family; Visit Provider Internal Medicine Hematology & Oncology
DX: E83.110 Hereditary hemochromatosis (principal)
CPT/HCPCS: 36415; 82728

== ENCOUNTER 2024-08-08 14:08 | Outpatient (REF) | payer OTHER, SELFPAY ==
--- OUTSIDE RECORDS SUMMARY | 2024-08-08 14:35 | XMS_ITS | Clinical Summary ---
Author Organization [address] [place] [address] Address [address] [place] [address] Phone Care Team Providers Care Accessibility Lift Technician Name Role Phone Dank Pfeiffer WOOL BATTING WORKER Primary Care Provider Allergies Active Allergy Reactions [...] ID:[id number] Group ID:[id number] Type:Not on file Address: [place] [address] [address] [place] [phone] Care Teams Accessibility Lift Technician Relationship Specialty Start Date End Date Dank Pfeiffer NP [address] [place] [phone] PCP - General Nurse Practitioner 01/17/24
== END 2024-08-08 14:09 | disposition home or self-care (01) ==
LOC: HO.BBR 14:08
PROVIDERS: PCP Nurse Practitioner Family; Visit Provider Internal Medicine Hematology & Oncology
DX: Z13.89 Encounter for screening for other disorder (principal)

== ENCOUNTER 2024-09-06 13:55 | Outpatient (REF) | payer OTHER, SELFPAY ==
--- OUTSIDE RECORDS SUMMARY | 2024-09-06 15:12 | XMS_ITS | Clinical Summary ---
Author Organization [address] [place] [address] Address [address] [place] [address] Phone Care Team Providers Care Cage Manager Name Role Phone Dank Pfeiffer SUGAR REFINER Primary Care Provider Allergies Active Allergy Reactions [...] ID:[id number] Group ID:[id number] Type:Not on file Address: [place] [address] [address] [place] [phone] Care Teams Cage Manager Relationship Specialty Start Date End Date Dank Pfeiffer NP [address] [place] [phone] PCP - General Nurse Practitioner 01/17/24
== END 2024-09-06 13:56 | disposition home or self-care (01) ==
LOC: HO.BBR 13:55
PROVIDERS: PCP Nurse Practitioner Family; Visit Provider Internal Medicine Hematology & Oncology
DX: Z13.89 Encounter for screening for other disorder (principal)

== ENCOUNTER 2024-10-04 14:00 | Outpatient (REF) | payer OTHER, SELFPAY ==
--- OUTSIDE RECORDS SUMMARY | 2024-10-04 14:47 | XMS_ITS | Clinical Summary ---
Author Organization [address] [place] [address] Address [address] [place] [address] Phone Care Team Providers Care Modeling Agent Name Role Phone Dank Pfeiffer MORNING NANNY Primary Care Provider Allergies Active Allergy Reactions [...] Influencers of Health Screening 01/13/2024 Influenza Vaccine (#1) 2024 , 02/15/2018, 02/18/2016, Additional history exists DTaP,Tdap,and Td [...] Subscriber Plan / Payer (Ef fective 2018-Present) Name:Justni Pelaez Relation to Subscriber:Self Name:Justin Pelaez Payer ID:[id number] Group ID:[id number] Type:Not on file Address: [place] [address] [address] [place] [phone] Care Teams Modeling Agent Relationship Specialty Start Date End Date Dank Pfeiffer NP [address] [place] [phone] PCP - General Nurse Practitioner 01/17/24
== END 2024-10-04 14:01 | disposition home or self-care (01) ==
LOC: HO.BBR 14:00
PROVIDERS: PCP Nurse Practitioner Family; Visit Provider Internal Medicine Hematology & Oncology
DX: Z13.89 Encounter for screening for other disorder (principal)

== ENCOUNTER 2024-11-01 14:01 | Outpatient (REF) | payer OTHER, SELFPAY ==
--- OUTSIDE RECORDS SUMMARY | 2024-11-01 14:50 | XMS_ITS | Patient Health Record ---
Author Organization [facility] Address [address] [place] [address] Care Team Providers Care Tutoring Assistant Name Role Phone Marco Del Toro Unavailable [phone] Reason For Referral No Information Plan Of Treatment No Information
--- OUTSIDE RECORDS SUMMARY | 2024-11-01 14:50 | XMS_ITS | Clinical Summary ---
Author Organization [address] [place] [address] Address [address] [place] [address] Phone Care Team Providers Care Auto Bumper Mechanic Name Role Phone Dank Pfeiffer SORTING LIVESTOCK WORKER Primary Care Provider Allergies Active Allergy [...] Panel) 01/13/2024 Colorectal Cancer Screening: Colonoscopy 01/13/2024 Falls Risk Assessment 01/13/2024 Hepatitis C Screening 01/13/2024 Medicare Annual Wellness Visit 01/13/2024 Social Influencers of Health Screening 01/13/2024 Depression Screening 03/21/2024 Influenza Vaccine (#1) 2024 , 02/15/2018, 02/18/2016, [...] ID:[id number] Group ID:[id number] Type:Not on file Address: [place] [address] [address] [place] [phone] Care Teams Auto Bumper Mechanic Relationship Specialty Start Date End Date Dank Pfeiffer NP [address] [place] [phone] PCP - General Nurse Practitioner 01/17/24
== END 2024-11-01 14:02 | disposition home or self-care (01) ==
LOC: HO.BBR 14:01
PROVIDERS: PCP Nurse Practitioner Family; Visit Provider Internal Medicine Hematology & Oncology
DX: Z13.89 Encounter for screening for other disorder (principal)

== ENCOUNTER 2024-12-05 13:45 | Outpatient (REF) | payer OTHER, SELFPAY ==
--- OUTSIDE RECORDS SUMMARY | 2024-12-05 17:27 | XMS_ITS | Patient Health Record ---
Author Organization [facility] Address [address] [place] [address] Care Team Providers Care Customer Orders Clerk Name Role Phone Marco Del Toro Unavailable [phone] Reason For Referral No Information Plan Of Treatment No Information
== END 2024-12-05 13:46 | disposition home or self-care (01) ==
LOC: HO.BBR 13:45
PROVIDERS: PCP Nurse Practitioner Family; Visit Provider Internal Medicine Hematology & Oncology
DX: Z13.89 Encounter for screening for other disorder (principal)

== ENCOUNTER 2025-01-03 13:39 | Outpatient (REF) | payer OTHER, SELFPAY ==
--- OUTSIDE RECORDS SUMMARY | 2025-01-03 17:26 | XMS_ITS | Clinical Summary ---
Author Organization [address] [place] [address] Address [address] [place] [address] Phone Care Team Providers Care Vp Customer Development Name Role Phone Dank Pfeiffer PILE DRIVING SUPERVISOR Primary Care Provider Allergies Active Allergy Reactions [...] Health Maintenance Due Date Last Done Comments Colorectal Cancer Screening: Colonoscopy 1950 Pneumococcal Vaccine: 50+ Years (2 of 2 - PCV20 or PCV21) 02/15/2019 02/15/2018 Zoster Vaccines (3 of 3) 06/02/2021 04/07/2021, 02/18 Abdominal Aortic Aneurysm (AAA) Screen 01/13/2024 Cholesterol Screening (Lipid Panel) 01/13/2024 Falls Risk Assessment 01/13/2024 Hepatitis C Screening 01/13/2024 Medicare Annual Wellness Visit 01/13/2024 Social Influencers of Health Screening 01/13/2024 Depression Screening 03/21/2024 COVID-19 Vaccine ( season) 2024 06/01/2021, 12/03/2020, 11/12/2020 Influenza Vaccine (#1) 2024 , 02/15/2018, 02/18/2016, [...] fective 2018-Present) Name:Justin Pelaez Relation to Subscriber:Self Name:Benigno Justni Payer ID:[id number] Group ID:[id number] Type:Not on file Address: [place] [address] [address] [place] [phone] Care Teams Vp Customer Development Relationship Specialty Start Date End Date Dank Pfeiffer NP [address] [place] [phone] PCP - General Nurse Practitioner 01/17/24
--- OUTSIDE RECORDS SUMMARY | 2025-01-03 17:26 | XMS_ITS | Patient Health Record ---
Author Organization [facility] Address [address] [place] [address] Care Team Providers Care Speed Belt Sander Tender Name Role Phone Marco Del Toro Unavailable [phone] Reason For Referral No Information Plan Of Treatment No Information
== END 2025-01-03 13:40 | disposition home or self-care (01) ==
LOC: HO.BBR 13:39
PROVIDERS: PCP Nurse Practitioner Family; Visit Provider Internal Medicine Hematology & Oncology
DX: Z13.89 Encounter for screening for other disorder (principal)

== ENCOUNTER 2025-02-01 13:47 | Outpatient (REF) | payer OTHER, SELFPAY ==
--- OUTSIDE RECORDS SUMMARY | 2025-02-01 20:09 | XMS_ITS | Clinical Summary ---
Author Organization [address] [place] [address] Address [address] [place] [address] Phone Care Team Providers Care Felting Machine Operator Name Role Phone Dank Pfeiffer PRESS DEPARTMENT MANAGER Primary Care Provider Allergies Active Allergy Reactions [...] 2018-Present) Name:Justin Pelaez Relation to Subscriber:Self Name:Benigno Justin Payer ID:[id number] Group ID:[id number] Type:Not on file Address: [place] [address] [address] [place] [phone] Care Teams Felting Machine Operator Relationship Specialty Start Date End Date Dank Pfeiffer NP [address] [place] [phone] PCP - General Nurse Practitioner 01/17/24
== END 2025-02-01 13:48 | disposition home or self-care (01) ==
LOC: HO.BBR 13:47
PROVIDERS: PCP Nurse Practitioner Family; Visit Provider Internal Medicine Hematology & Oncology
DX: Z13.89 Encounter for screening for other disorder (principal)